=== PATIENT | male | born 1945 | race Caucasian/White ===

== ENCOUNTER 2019-03-31 11:40 | Inpatient (IN) | payer MEDICARE, OTHER ==
[~2019-03-31] VITALS: Ht 177.8 cm; Wt 80.9 kg
[2019-03-31] MEDS ORDERED: FUROSEMIDE 20 MG/2 ML VIAL IV ONE (12:30)
[2019-03-31 12:42] LABS: Basophils # (auto) 0.1 uL; Basophils % (auto) 0.5 % (0.0-2.0); Eosinophils # (auto) 0 uL; Hemoglobin 14.7 g/dL (13.5-17.5); Lymphocytes # (auto) 1.4 uL; Lymphocytes % (auto) 14.4 % (10.0-50.0); Mean Corpuscular Hemoglobin 33.3 pg (28.0-32.0); Mean Corpuscular Hgb Conc. 34.1 g/dL (32.0-36.0); Mean Corpuscular Volume 97.7 fL (80.0-100.0); Monocytes # (auto) 1.5 uL; Monocytes % (auto) 15.3 % (0.0-12.0); Neutrophils # (auto) 6.9 uL; Neutrophils % (auto) 69.8 % (37.0-80.0); Platelet Count (auto) 194 10^3/uL (140-450); Red Cell Distribution Width 14.3 % (11.8-14.3); White Blood Cell 9.9 10^3/uL (4.4-10.8)
[2019-03-31 12:58] LABS: INR 1.13 (0.9-1.15); Partial Thromboplastin Time 30.8 sec (23.64-32.05)
[2019-03-31 13:24] LABS: Albumin 3.6 g/dL (3.4-5.0); Calcium 8.8 mg/dL (8.5-10.1); Potassium 4.3 mmol/L (3.5-5.1)
[2019-03-31 13:31] LABS: BUN/Creatinine Ratio 19.5; Bilirubin, Total 0.3 mg/dL (0.2-1.0); Total Protein 7.3 g/dL (6.4-8.2)
[2019-03-31] MEDS ORDERED: HYDROcodone-ACET 5/325MG TAB PO PRN (14:45)
[2019-03-31] MEDS ORDERED: MORPHINE SULF INJ 2 MG/ML SYRINGE 1ML IV PRN ×2 (14:45)
[2019-03-31] MEDS ORDERED: NITROGLYCERIN 0.4 MG SL TAB SL PRN (14:45)
[2019-03-31] MEDS ORDERED: ACETAMINOPHEN 500 MG TAB PO PRN (14:45)
[2019-03-31] MEDS ORDERED: methylPREDNISolone SOD SUCC 125 MG/2 ML VL IV ONE (14:45)
[2019-03-31] MEDS ORDERED: ONDANSETRON HCL 4 MG/2 ML VIAL IV PRN (14:45)
[2019-03-31] MEDS: AZITHROMYCIN 500MG/ 250ML 250 ML IV SCH (15:11)
[2019-03-31 15:30] VITALS: BP 94/75
[2019-03-31 16:08] VITALS: BP 94/75
[2019-03-31] MEDS: cefTRIAXone 1GM/50ML D5W 50 ML IV SCH (16:15)
[2019-03-31] MEDS ORDERED: ATEN-60 PO (16:21)
[2019-03-31] MEDS ORDERED: ASPI325T4 PO (16:22)
[2019-03-31] MEDS ORDERED: PRAV20TA3 PO (16:23)
[2019-03-31 16:30] VITALS: BP 132/89
--- NOTE | 2019-03-31 16:30 | NUR ---
Telemetry admit from ER JOSEFINA AWAD admitted to Telemetry unit after SBAR received. Patient oriented to Navya Rodríguez, RN primary RN, unit, room, bed, and unit policies regarding patient care and visiting hours. Patient now on continuous telemetry monitoring, tele box # 39 and telemetry reading on arrival to unit is sinus rhythm. Patient placed on bedside oxygen, weighed by bedscale and encouraged to call if they need something. All questions and concerns addressed, patient verbalized understanding.
[2019-03-31 17:00] VITALS: BP 132/89
[2019-03-31] MEDS: IPRATROPIUM BROM 0.5 MG/2.5ML INH SOL NEB SCH ×2 (18:38→22:01)
[2019-03-31] MEDS: ALBUTEROL SULF 2.5 MG/0.5ML(0.5%) NEB SOLN NEB SCH ×2 (18:38→22:01)
--- NOTE | 2019-03-31 19:30 | NUR ---
Opening Shift Note Assumed care of patient, awake and alert. No S/S of distress/SOB or pain. Instructed on POC and to call for assist PRN, will continue to monitor for changes Q1hr and PRN.
--- NOTE | 2019-03-31 20:30 | NUR ---
Patient tested positive for influenza A. Patient moved to 208 and now on Droplet precautions. Paged hospitalist.
[2019-03-31 21:48] VITALS: BP 128/80
--- NOTE | 2019-03-31 22:45 | NUR ---
Received call back from hospitalist. Received new orders for Tamiflu 75 mg Daily.
[2019-04-01] VITALS (7 sets, daily range): BP systolic 102–123; BP diastolic 55–80
[2019-04-01 05:22] LABS: Basophils # (auto) 0 uL; Basophils % (auto) 0.1 % (0.0-2.0); Eosinophils # (auto) 0 uL; Hematocrit 43.2 % (41.0-53.0); Hemoglobin 14.7 g/dL (13.5-17.5); Lymphocytes # (auto) 1.2 uL; Lymphocytes % (auto) 16.2 % (10.0-50.0); Mean Corpuscular Hemoglobin 33.3 pg (28.0-32.0); Mean Corpuscular Hgb Conc. 34.2 g/dL (32.0-36.0); Mean Corpuscular Volume 97.5 fL (80.0-100.0); Monocytes # (auto) 0.7 uL; Monocytes % (auto) 10.2 % (0.0-12.0); Neutrophils # (auto) 5.2 uL; Neutrophils % (auto) 73.5 % (37.0-80.0); Platelet Count (auto) 174 10^3/uL (140-450); Red Blood Cells 4.43 10^6/uL (4.5-5.90); Red Cell Distribution Width 14.5 % (11.8-14.3); White Blood Cell 7.1 10^3/uL (4.4-10.8)
[2019-04-01 05:43] LABS: Potassium 4.1 mmol/L (3.5-5.1)
[2019-04-01 05:51] LABS: Albumin 3.3 g/dL (3.4-5.0); BUN/Creatinine Ratio 23.7; Bilirubin, Total 0.3 mg/dL (0.2-1.0); Calcium 8.8 mg/dL (8.5-10.1)
[2019-04-01] MEDS: ALBUTEROL SULF 2.5 MG/0.5ML(0.5%) NEB SOLN NEB SCH ×5 (06:00→22:48)
[2019-04-01] MEDS: IPRATROPIUM BROM 0.5 MG/2.5ML INH SOL NEB SCH ×5 (06:00→22:48)
--- NOTE | 2019-04-01 06:20 | NUR ---
Respiratory note: 0600 MED-NEB TX NON ADMINISTERED PATIENT WAS SLEEPING. NO RESPIRATORY DISTRESS NOTED.
--- NOTE | 2019-04-01 07:16 | NUR ---
Opening Shift Note Assumed care of patient, awake and alert. No S/S of distress/SOB or pain. Instructed on POC and to call for assist PRN, will continue to monitor for changes Q1hr and PRN. Bed is set in lowest locked position with side rails are up x 2 for safety and call light is within reach.
[2019-04-01] MEDS: cefTRIAXone 1GM/50ML D5W 50 ML IV SCH (08:12)
[2019-04-01] MEDS: AZITHROMYCIN 500MG/ 250ML 250 ML IV SCH (09:55)
[2019-04-01] MEDS: FAMOTIDINE 20 MG TAB PO SCH (09:55)
[2019-04-01] MEDS: OSELTAMIVIR 75 MG CAP PO SCH (09:56)
[2019-04-01] MEDS: methylPREDNISolone SOD SUCC 125 MG/2 ML VL IV SCH ×2 (15:25→21:49)
[2019-04-01] MEDS ORDERED: FUROSEMIDE 20 MG TAB PO ONE (15:30)
[2019-04-01] MEDS ORDERED: PROPRANOLOL HCL 20 MG TAB PO PRN ×2 (17:45)
[2019-04-01] MEDS ORDERED: IOHEXOL 350 MG/ML 100ML IJ ONE ×2 (18:06→19:04)
--- NOTE | 2019-04-01 19:10 | NUR ---
Endorsed care to NOC RN.
[2019-04-01] MEDS: SODIUM CHLORIDE 0.9% 1,000 ML IV SCH (19:30)
[2019-04-01] MEDS: ATORVASTATIN 20 MG TAB PO SCH (21:48)
[2019-04-01] MEDS: CARVEDILOL 3.125 MG TAB PO SCH (21:48)
[2019-04-01] MEDS: ENOXAPARIN SOD 100 MG/1 ML SYRINGE SC SCH (21:49)
--- NOTE | 2019-04-02 04:30 | NUR ---
Educated patient regarding breathing technique to help improve O2 saturation. Patient had shallow breathing and O2 saturation was at 88% and with proper breathing at 93%. Will continue to monitor.
[2019-04-02 05:36] VITALS: BP 122/81
[2019-04-02] MEDS: SODIUM CHLORIDE 0.9% 1,000 ML IV SCH ×3 (05:47→23:07)
[2019-04-02] MEDS: IPRATROPIUM BROM 0.5 MG/2.5ML INH SOL NEB SCH ×5 (06:55→22:08)
[2019-04-02] MEDS: ALBUTEROL SULF 2.5 MG/0.5ML(0.5%) NEB SOLN NEB SCH ×5 (06:55→22:08)
--- NOTE | 2019-04-02 07:30 | NUR ---
OPENING SHIFT NOTE: Received report from NOC RNRod. Assumed care of patient. Patient resting in bed, denies pain. Bed in lowest position, rails x2 up and call light within reach. Updated on plan of care. Will continue to monitor.
[2019-04-02 09:00] VITALS: BP 124/68
[2019-04-02] MEDS: cefTRIAXone 1GM/50ML D5W 50 ML IV SCH (09:21)
--- NOTE | 2019-04-02 09:25 | NUR ---
MD: Dr Kevin Dobbs at bedside. Orders received.
[2019-04-02] MEDS ORDERED: VANCOMYCIN PER PHARMACY 0 MG IV SCH (09:30)
[2019-04-02] MEDS: ENOXAPARIN SOD 100 MG/1 ML SYRINGE SC SCH ×2 (10:18→23:06)
[2019-04-02] MEDS: LEVOFLOXACIN 750MG 150 ML IV SCH (10:18)
[2019-04-02] MEDS: OSELTAMIVIR 75 MG CAP PO SCH (10:19)
[2019-04-02] MEDS: CARVEDILOL 3.125 MG TAB PO SCH ×2 (10:19→23:06)
[2019-04-02] MEDS: LORATADINE 10 MG TAB PO SCH (10:19)
[2019-04-02] MEDS: FAMOTIDINE 20 MG TAB PO SCH (10:20)
[2019-04-02] MEDS: ASPirin 81 mg TAB PO SCH (10:20)
[2019-04-02] MEDS: FUROSEMIDE 20 MG TAB PO SCH (10:20)
--- NOTE | 2019-04-02 10:45 | NUR ---
IV ACCESS: IV to left wrist noted to be leaking. IV removed with catheter intact and pressure dressing applied. Patient still with IV access to right forearm.
[2019-04-02] MEDS: VANCOMYCIN 750mg/250ml 250 ML IV SCH ×2 (12:30→23:07)
[2019-04-02 13:00] VITALS: BP 111/75
[2019-04-02 17:00] VITALS: BP 122/85
--- NOTE | 2019-04-02 18:59 | NUR ---
CLOSING SHIFT NOTE: Report given to CAT Garcia. Endorsed care of patient.
--- NOTE | 2019-04-02 19:06 | NUR ---
Opening Shift Note Assumed care of patient, awake and alert. No S/S of distress OR SOB or pain. Instructed on POC and to call for assist PRN. Call light within reach. Side rails up x2. Bed locked and in lowest position. Droplet precautions in place. Will continue to monitor.
[2019-04-02 22:00] VITALS: BP 137/91
[2019-04-02] MEDS: ACETYLCYSTEINE 10 %(100MG/ML) SOL 4ML NEB SCH (22:09)
[2019-04-02] MEDS: ATORVASTATIN 20 MG TAB PO SCH (23:06)
[2019-04-03 05:07] VITALS: BP 130/71
[2019-04-03 05:09] LABS: Basophils # (auto) 0 uL; Basophils % (auto) 0.3 % (0.0-2.0); Eosinophils # (auto) 0 uL; Eosinophils % (auto) 0.1 % (0.0-7.0); Hematocrit 40.2 % (41.0-53.0); Hemoglobin 13.7 g/dL (13.5-17.5); Lymphocytes % (auto) 18.9 % (10.0-50.0); Mean Corpuscular Hemoglobin 33.3 pg (28.0-32.0); Mean Corpuscular Hgb Conc. 34.2 g/dL (32.0-36.0); Mean Corpuscular Volume 97.2 fL (80.0-100.0); Monocytes % (auto) 9.4 % (0.0-12.0); Neutrophils # (auto) 7.5 uL; Neutrophils % (auto) 71.3 % (37.0-80.0); Platelet Count (auto) 197 10^3/uL (140-450); Red Blood Cells 4.13 10^6/uL (4.5-5.90); Red Cell Distribution Width 14.4 % (11.8-14.3); White Blood Cell 10.6 10^3/uL (4.4-10.8)
[2019-04-03 05:28] LABS: Calcium 8.2 mg/dL (8.5-10.1); Potassium 3.8 mmol/L (3.5-5.1)
[2019-04-03 05:30] LABS: BUN/Creatinine Ratio 22.7
[2019-04-03] MEDS: ACETYLCYSTEINE 10 %(100MG/ML) SOL 4ML NEB SCH ×3 (06:00→22:26)
[2019-04-03] MEDS: ALBUTEROL SULF 2.5 MG/0.5ML(0.5%) NEB SOLN NEB SCH ×5 (06:59→22:26)
[2019-04-03] MEDS: IPRATROPIUM BROM 0.5 MG/2.5ML INH SOL NEB SCH ×5 (06:59→22:26)
--- NOTE | 2019-04-03 08:10 | NUR ---
Opening Shift Note Assumed care of patient, she is A & O x4, no S/S of distress OR SOB or pain. Instructed on POC and to call for assist PRN. Call light within reach. Side rails up x2. Bed locked and in lowest position. Droplet precautions in place. Will continue to monitor.
[2019-04-03 09:00] VITALS: BP 126/77
[2019-04-03] MEDS: LORATADINE 10 MG TAB PO SCH (09:33)
[2019-04-03] MEDS: FUROSEMIDE 20 MG TAB PO SCH (09:35)
[2019-04-03] MEDS: CARVEDILOL 3.125 MG TAB PO SCH ×2 (09:35→20:35)
[2019-04-03] MEDS: ASPirin 81 mg TAB PO SCH (09:35)
[2019-04-03] MEDS: FAMOTIDINE 20 MG TAB PO SCH (09:36)
[2019-04-03] MEDS: ENOXAPARIN SOD 100 MG/1 ML SYRINGE SC SCH ×2 (09:36→20:35)
[2019-04-03] MEDS: LEVOFLOXACIN 750MG 150 ML IV SCH (09:36)
[2019-04-03] MEDS: SODIUM CHLORIDE 0.9% 1,000 ML IV SCH ×2 (09:45→21:00)
[2019-04-03] MEDS: OSELTAMIVIR 75 MG CAP PO SCH ×2 (09:51→20:35)
[2019-04-03] MEDS ORDERED: OSELTAMIVIR 75 MG CAP PO SCH (10:00)
[2019-04-03 13:00] VITALS: BP 105/84
--- NOTE | 2019-04-03 14:06 | NUR ---
NUTRITION ASSESSMENT NOTES Please refer to link notes of nutrition screen form filed under the intervention section of the plan of care for further details. Est. Needs: 1700 kcal to 2100 kcal (20-25 kcal/kgBW), 67 gms to 84 gms pro (0.8-1.0 gms/kgBW). Will continue to monitor pertinent labs and reassess nutrient need prn Thank you. Addendum: 04/03/19 at [address] Amended: Links added.
--- NOTE | 2019-04-03 16:46 | NUR ---
assessment Patient is a 73 year old male who is alert and oriented. Prior to admission patient lived home with his Heather and was independent. Patient has no need for DME. Patient uses the [facility] for PCP. Patient will return home on discharge and Heather will transport. Patient has no post discharge needs identified. I informed patient he has a right to speak to a social work coordinator regarding all care. I informed patient he has a right to participate in any and all discharge planning. Patient does not have a POA and advanced directive. I have offered patient information on POA and advanced directives. I informed the patient the advantages and benefits of having an Advanced Directive. Patient verbalized understanding and agreed to discharge plan. Addendum: 04/03/19 at 1648 by Terri ARGUETA Amended: Links added.
[2019-04-03 17:00] VITALS: BP 144/88
--- NOTE | 2019-04-03 17:25 | NUR ---
Per JACK PRIZER patient oxygen level is low Upon assessment patient oxygen is 88% on 7 L oxymizer. Patient continues to have rhonchi and a wet cough, patient talking, showing no s/s of distress at this time. This RN decreased IV fluid rate to 50 ml/hr, turned up oxymizer to 8 L/min and called RT to request breathing treatment early, normally due at 6pm. Will continue to monitor.
[2019-04-03] MEDS: ATORVASTATIN 20 MG TAB PO SCH (20:35)
[2019-04-03 21:41] VITALS: BP 121/92
[2019-04-04 04:38] VITALS: BP 123/61
[2019-04-04] MEDS: IPRATROPIUM BROM 0.5 MG/2.5ML INH SOL NEB SCH ×5 (06:16→22:34)
[2019-04-04] MEDS: ALBUTEROL SULF 2.5 MG/0.5ML(0.5%) NEB SOLN NEB SCH ×5 (06:16→22:34)
[2019-04-04] MEDS: ACETYLCYSTEINE 10 %(100MG/ML) SOL 4ML NEB SCH ×3 (06:16→22:35)
--- NOTE | 2019-04-04 08:00 | NUR ---
Opening Shift Note Assumed care of patient, he is A & O x4, no S/S of distress OR SOB or pain. Instructed on POC and to call for assist PRN. Call light within reach. Side rails up x2. Bed locked and in lowest position. Droplet precautions in place. Will continue to monitor.
[2019-04-04 09:19] VITALS: BP 118/67
--- NOTE | 2019-04-04 09:38 | NUR ---
Dr. Dobbs at bedside Informed Dr. Dobbs of patient need for high level oxygen, patient desaturates on RA. Will await orders.
[2019-04-04] MEDS: OSELTAMIVIR 75 MG CAP PO SCH ×2 (10:41→22:05)
[2019-04-04] MEDS: methylPREDNISolone SOD SUCC 125 MG/2 ML VL IV SCH ×2 (10:41→22:03)
[2019-04-04] MEDS: LORATADINE 10 MG TAB PO SCH (10:41)
[2019-04-04] MEDS: APIXABAN 2.5 MG TAB PO SCH ×2 (10:42→22:04)
[2019-04-04] MEDS: FAMOTIDINE 20 MG TAB PO SCH (10:42)
[2019-04-04] MEDS: FUROSEMIDE 20 MG TAB PO SCH (10:43)
[2019-04-04] MEDS: CARVEDILOL 3.125 MG TAB PO SCH ×3 (10:44→23:04)
[2019-04-04] MEDS: LEVOFLOXACIN 750MG 150 ML IV SCH (10:59)
[2019-04-04 13:00] VITALS: BP 114/69
[2019-04-04 16:46] VITALS: BP 113/89
[2019-04-04 22:03] VITALS: BP 105/69
[2019-04-04] MEDS: ATORVASTATIN 20 MG TAB PO SCH (22:04)
[2019-04-05 05:03] VITALS: BP 129/76
[2019-04-05] MEDS: IPRATROPIUM BROM 0.5 MG/2.5ML INH SOL NEB SCH ×5 (06:16→22:00)
[2019-04-05] MEDS: ALBUTEROL SULF 2.5 MG/0.5ML(0.5%) NEB SOLN NEB SCH ×5 (06:16→22:00)
[2019-04-05] MEDS: ACETYLCYSTEINE 10 %(100MG/ML) SOL 4ML NEB SCH ×3 (06:16→22:00)
--- NOTE | 2019-04-05 08:08 | NUR ---
Opening Shift Note Assumed care of patient, he is A & O x4, no S/S of distress OR SOB or pain. Patient sitting up at side of bed, Instructed on POC and to call for assist PRN. Call light within reach. Side rails up x2. Bed locked and in lowest position. Droplet precautions in place. Will continue to monitor.
--- NOTE | 2019-04-05 08:36 | NUR ---
O2 TITRATION O2 TITRATED TO 5L. WILL REASSESS IN 10 MINUTES
--- NOTE | 2019-04-05 08:39 | NUR ---
MD MADONNA MCKEON AT BEDSIDE. ALL QUESTIONS AND CONCERNS ADDRESSED AT THIS TIME. PER THIS RN IS TO TITRATE OXYGEN TO 5L AND REASSESS IN 10 MINUTES. Addendum: 04/05/19 at 0841 by FARIHA WANG RN RN CORRECT TIME 0836
--- NOTE | 2019-04-05 08:56 | NUR ---
PULSE OXIMETRY REASSESSED PT CURRENTLY ON 5L OXYMIZER WITH 93%SpO2. NO SOB OR S/S OF DISTRESS NOTED. WILL CONTINUE TO MONITOR
[2019-04-05 09:00] VITALS: BP 110/72
[2019-04-05] MEDS: methylPREDNISolone SOD SUCC 125 MG/2 ML VL IV SCH ×2 (09:17→21:28)
[2019-04-05] MEDS: LEVOFLOXACIN 750MG 150 ML IV SCH (09:17)
[2019-04-05] MEDS: OSELTAMIVIR 75 MG CAP PO SCH ×2 (09:17→21:29)
[2019-04-05] MEDS: APIXABAN 2.5 MG TAB PO SCH ×2 (09:18→21:29)
[2019-04-05] MEDS: LORATADINE 10 MG TAB PO SCH (09:18)
[2019-04-05] MEDS: FAMOTIDINE 20 MG TAB PO SCH (09:18)
[2019-04-05] MEDS: CARVEDILOL 3.125 MG TAB PO SCH (09:19)
[2019-04-05] MEDS: FUROSEMIDE 20 MG TAB PO SCH (09:20)
[2019-04-05 13:00] VITALS: BP 100/74
--- NOTE | 2019-04-05 15:18 | NUR ---
PULSE OXIMETRY REASSESSED PT CURRENTLY ON 5L OXYMIZER WITH 92%SpO2. NO SOB OR S/S OF DISTRESS NOTED. WILL CONTINUE TO MONITOR
[2019-04-05 17:14] VITALS: BP 116/73
[2019-04-05] MEDS: ATORVASTATIN 20 MG TAB PO SCH (21:29)
[2019-04-05 22:00] VITALS: BP 114/72
[2019-04-06] VITALS (7 sets, daily range): BP systolic 100–119; BP diastolic 67–81
[2019-04-06] MEDS: ACETYLCYSTEINE 10 %(100MG/ML) SOL 4ML NEB SCH ×3 (06:26→22:21)
[2019-04-06] MEDS: ALBUTEROL SULF 2.5 MG/0.5ML(0.5%) NEB SOLN NEB SCH ×5 (06:26→22:21)
[2019-04-06] MEDS: IPRATROPIUM BROM 0.5 MG/2.5ML INH SOL NEB SCH ×5 (06:26→22:21)
--- NOTE | 2019-04-06 08:00 | NUR ---
OPENING SHIFT NOTE ASSUMED CARE OF PATIENT AWAKE AND ALERT. NO S/S OF DISTRESS NOTED OR COMPLAINTS OF PAIN. CURRENTLY ON 5L VIA OXYMIZER SATTING AT 93%. PT UPDATED ON POC FOR THE DAY AND ALL QUESTIONS ANSWERED. PT IS EXPRESSING A DESIRE TO GO HOME. BED IS IN LOWEST, LOCKED POSITION WITH SIDE RAILS UP X2 AND CALL LIGHT WITHIN REACH. WILL CONTINUE TO MONITOR Q1H AND PRN.
[2019-04-06] MEDS: LEVOFLOXACIN 750MG 150 ML IV SCH (10:02)
[2019-04-06] MEDS: OSELTAMIVIR 75 MG CAP PO SCH ×2 (10:03→21:53)
[2019-04-06] MEDS: LORATADINE 10 MG TAB PO SCH (10:03)
[2019-04-06] MEDS: methylPREDNISolone SOD SUCC 125 MG/2 ML VL IV SCH ×2 (10:03→21:51)
[2019-04-06] MEDS: FUROSEMIDE 20 MG TAB PO SCH (10:04)
[2019-04-06] MEDS: APIXABAN 2.5 MG TAB PO SCH ×2 (10:04→21:53)
[2019-04-06] MEDS: FAMOTIDINE 20 MG TAB PO SCH (10:04)
[2019-04-06] MEDS: CARVEDILOL 3.125 MG TAB PO SCH ×2 (10:04→21:52)
--- NOTE | 2019-04-06 18:35 | NUR ---
Respiratory note: INCREASED PT TO 8L OXYMIZER AT THIS TIME
[2019-04-06] MEDS: ATORVASTATIN 20 MG TAB PO SCH (21:53)
--- NOTE | 2019-04-06 22:31 | NUR ---
Respiratory note: POST MED NEB, PLACED PT ON 10L OXYMIZER
[2019-04-07 05:00] VITALS: BP 101/72
--- NOTE | 2019-04-07 06:30 | NUR ---
PATIENT TITRATED BACK DOWN TO 5L OXYMIZER. PATIENT SATURATIONS AT 94% AT THIS TIME. PATIENT ASYMPTOMATIC. PATIENT STATES " I FEEL REALLY GOOD THIS MORNING". WILL CONTINUE TO MONITOR.
[2019-04-07] MEDS: ALBUTEROL SULF 2.5 MG/0.5ML(0.5%) NEB SOLN NEB SCH ×4 (06:46→18:00)
[2019-04-07] MEDS: ACETYLCYSTEINE 10 %(100MG/ML) SOL 4ML NEB SCH ×2 (06:46→13:59)
[2019-04-07] MEDS: IPRATROPIUM BROM 0.5 MG/2.5ML INH SOL NEB SCH ×4 (06:46→18:00)
--- NOTE | 2019-04-07 07:01 | NUR ---
CLOSING NOTE REPORT GIVEN TO DAYSHIFT RN. PATIENT RESTING COMFORTABLY IN BED.
--- NOTE | 2019-04-07 08:00 | NUR ---
OPENING SHIFT NOTE ASSUMED CARE OF PATIENT AWAKE AND ALERT. NO S.S OF DISTRESS OR COMPLAINTS OF PAIN. PT IS ON 5L VIA OXYMIZER SATURATING BETWEEN 90-94%. ENCOURAGED PATIENT TO TAKE FREQUENT DEEP BREATHS, COUGH, AND USE IS. PT VERBALIZED UNDERSTANDING AND DEMONSTRATED CORRECT USE OF IS. PT UPDATED ON POC FOR THE DAY AND ALL QUESTIONS ANSWERED. BED IS IN LOWEST, LOCKED POSITION WITH SIDE RAILS UP X2 AND CALL LIGHT WITHIN REACH. WILL CONTINUE TO MONITOR Q1H AND PRN.
[2019-04-07 09:00] VITALS: BP 107/73
[2019-04-07] MEDS: CARVEDILOL 3.125 MG TAB PO SCH (09:48)
[2019-04-07] MEDS: LEVOFLOXACIN 750MG 150 ML IV SCH (09:48)
[2019-04-07] MEDS: LORATADINE 10 MG TAB PO SCH (09:48)
[2019-04-07] MEDS: methylPREDNISolone SOD SUCC 125 MG/2 ML VL IV SCH (09:48)
[2019-04-07] MEDS: FUROSEMIDE 20 MG TAB PO SCH (09:49)
[2019-04-07] MEDS: APIXABAN 2.5 MG TAB PO SCH (09:49)
[2019-04-07] MEDS: FAMOTIDINE 20 MG TAB PO SCH (09:49)
[2019-04-07] MEDS: OSELTAMIVIR 75 MG CAP PO SCH (09:49)
--- NOTE | 2019-04-07 10:00 | NUR ---
AT BEDSIDE DR MCKEON AT BEDSIDE UPDATING FAMILY ON POC FOR THE DAY INCLUDING DISCHARGE AFTER DELIVERY OF HOME O2.
[2019-04-07 12:53] VITALS: BP 117/78
--- NOTE | 2019-04-07 16:06 | NUR ---
SS consult for home oxygen upon discharge. b Submitted clinical information to [facility] for home oxygen. Per Jonna at [facility], pt amanda has [employer] and no sceondary coverage. Additionally , [facility] does not do hernandez payments for oxygen at this time. Informed Jonna that pt [facility]. Per Jonna the [facility] is [facility] with [facility]. Contacted [facility] and spoke with Dee, who stated the order for oxygen would have to come from the [facility]. Dee did inform me that they do take hernandez patients and oxygen for one month is $120. Pt informed that he could pay for the month and upon following up with his [facility] provider he could obtain orders and have them sent to [facility] for medical coverage of home oxygen. Pt verbalized understanding and agreeance with discharge plan. portable tank to be delivered to the bedside.
[2019-04-07 17:00] VITALS: BP 121/77
--- NOTE | 2019-04-07 18:16 | NUR ---
Respiratory note: PT REFUSING SCHED MED NEB TX AT THIS TIME. PT IS CURRENTLY ON 6 L/M OXYMIZER: HR 89, RR 18, SPO2 90%. PT SHOWS NO S/S OF SOB OR DISTRESS. FAMILY AT BEDSIDE. WILL CONTINUE TO MONITOR.
--- NOTE | 2019-04-07 21:00 | NUR ---
DISCHARGE Discharge instructions given as ordered by dayshift CAT Mota and reinforced by this RN. Patient encouraged to follow up with PMD as instructed. All questions and concerns addressed. Patient verbalized understanding. IV removed with catheter intact, pressure dressing applied. Telemetry unit returned to ICU by day shift CAT Mota. Patient given prescriptions and left with home oxygen tank. Patient taken to vehicle via wheelchair with all personal belongings, accompanied by staff and family member. No distress noted at time of departure.
== END 2019-04-07 21:00 | disposition home health service (06) | DRG 291 ==
LOC: EDBD 11:40 → ER 11:40 → TELE 11:41 → TELE-CENTR 16:10 → CENTRAL 04-07 18:53
PROVIDERS: ADMIT Nurse Practitioner Acute Care; ATTEND Family Medicine
DX: I13.0 Hypertensive heart and chronic kidney disease with heart failure and stage 1 through stage 4 chronic kidney disease, or unspecified chronic kidney disease (principal); I50.33 Acute on chronic diastolic (congestive) heart failure; J96.01 Acute respiratory failure with hypoxia; J10.00 Influenza due to other identified influenza virus with unspecified type of pneumonia; J98.11 Atelectasis; N18.3 Chronic kidney disease, stage 3 (moderate); J20.9 Acute bronchitis, unspecified; E78.00 Pure hypercholesterolemia, unspecified; I71.4 Abdominal aortic aneurysm, without rupture; I25.10 Atherosclerotic heart disease of native coronary artery without angina pectoris; E78.5 Hyperlipidemia, unspecified; J43.9 Emphysema, unspecified; F17.200 Nicotine dependence, unspecified, uncomplicated; Z99.81 Dependence on supplemental oxygen; Z95.1 Presence of aortocoronary bypass graft; Z79.82 Long term (current) use of aspirin; Z79.899 Other long term (current) drug therapy; Z85.51 Personal history of malignant neoplasm of bladder; Z90.79 Acquired absence of other genital organ(s); Z82.49 Family history of ischemic heart disease and other diseases of the circulatory system
CPT/HCPCS: 36415; 36600; 71045; 71046; 71275; 80048; 80053; 80061; 82805; 83735; 83880; 84484; 85025; 85379; 85610; 85730; 87070; 87205; 87804; 93005; 93306; 93970; 94640; 96365; 96375; 97163; G0378; J0696; J1956

== ENCOUNTER 2023-10-11 15:25 | Inpatient (IN) | payer MEDICARE, OTHER ==
[~2023-10-11] VITALS: Ht 177.8 cm; Wt 70.2 kg
[~2023-10-11 15:25] MED LIST: ASPI325T6 PO; ATEN-60 PO; PRAV20TA3 PO
[2023-10-11] MEDS: IPRATROPIUM BROM 0.5 MG/2.5ML INH SOL NEB ONE ×2 (16:19→17:52)
[2023-10-11] MEDS: ALBUTEROL SULF 2.5 MG/0.5ML(0.5%) NEB SOLN NEB ONE ×2 (16:19→17:51)
[2023-10-11 16:39] VITALS: PULSE 71; RESP 22; O2SAT 92
[2023-10-11] MEDS: DexAMETHasone SOD PHOS 10MG/1ML VIAL INJ IV ONE (16:39)
[2023-10-11 16:51] LABS: Basophils # (auto) 0 10 ^3/uL (0-0.2); Basophils % (auto) 0.4 % (0.0-2.0); Eosinophils # (auto) 0.1 10 ^3/uL (0-0.8); Eosinophils % (auto) 1.3 % (0.0-7.0); Lymphocytes # (auto) 1.4 10 ^3/uL (0.4-5.4); Lymphocytes % (auto) 23.5 % (10.0-50.0); Mean Corpuscular Hemoglobin 31.6 pg (28.0-32.0); Mean Corpuscular Hgb Conc. 33.3 g/dL (32.0-36.0); Mean Corpuscular Volume 94.8 fL (80.0-100.0); Monocytes % (auto) 16.8 % (0.0-12.0); Neutrophils # (auto) 3.6 10 ^3/uL (1.6-8.6); Nucleated Red Blood Cells % 0.1 %; Platelet Count (auto) 214 10^3/uL (140-450); Red Blood Cells 4.43 10^6/uL (4.5-5.90); Red Cell Distribution Width 15.5 % (11.8-14.3); White Blood Cell 6.1 10^3/uL (4.4-10.8)
[2023-10-11 17:10] LABS: Chloride 104 mmol/L (98-107); Potassium 4.4 mmol/L (3.5-5.1); Sodium 139 mmol/L (136-145)
[2023-10-11 17:11] LABS: Anion Gap 1 (5-15); Calcium 9.5 mg/dL (8.7-10.4); Carbon Dioxide 34 mmol/L (20-30)
[2023-10-11 17:16] LABS: BUN/Creatinine Ratio 12.8 (10.0-20.0); Blood Urea Nitrogen 14 mg/dL (9-23); Glucose 127 mg/dL (74-106)
[2023-10-11 19:13] VITALS: PULSE 76; RESP 29; O2SAT 92; O2SAT 96
[2023-10-11] MEDS ORDERED: hydrALAZINE HCL 20 MG/ML VL IV PRN (21:30)
[2023-10-11] MEDS ORDERED: ACETAMINOPHEN 325 MG TAB PO PRN (21:30)
[2023-10-11] MEDS ORDERED: HYDROcodone-ACET 5/325MG TAB PO PRN (21:30)
[2023-10-11] MEDS ORDERED: ONDANSETRON HCL 4 MG/2 ML VIAL IV PRN (21:30)
[2023-10-11] MEDS ORDERED: DOCUSATE SOD 100 MG CAP PO PRN (21:30)
[2023-10-11] MEDS: SODIUM CHLORIDE 0.9% 1,000 ML IV SCH (21:46)
[2023-10-11 21:47] VITALS: O2SAT 90
[2023-10-11 21:48] VITALS: BP 124/74; PULSE 74; TEMP 98.2; O2SAT 90
[2023-10-11] MEDS: ATORVASTATIN 20 MG TAB PO SCH (21:48)
[2023-10-11] MEDS ORDERED: NITROGLYCERIN 0.4 MG SL TAB SL PRN (23:45)
[2023-10-11] MEDS ORDERED: MORPHINE SULFATE INJ 2 MG/ml SYRG IV PRN (23:45)
[2023-10-12] VITALS (9 sets, daily range): BP systolic 118–126; BP diastolic 72–76; PULSE 61–89; RESP 16–18; TEMP 97.6–97.8; O2SAT 92–100
[2023-10-12] MEDS: IPRATROPIUM BROM 0.5 MG/2.5ML INH SOL NEB PRN (02:16)
[2023-10-12] MEDS: ALBUTEROL SULF 2.5 MG/0.5ML(0.5%) NEB SOLN NEB PRN (02:16)
[2023-10-12 04:37] LABS: Basophils # (auto) 0 10 ^3/uL (0-0.2); Basophils % (auto) 0.2 % (0.0-2.0); Eosinophils # (auto) 0 10 ^3/uL (0-0.8); Hematocrit 40.6 % (41.0-53.0); Hemoglobin 13.8 g/dL (13.5-17.5); Lymphocytes # (auto) 0.8 10 ^3/uL (0.4-5.4); Lymphocytes % (auto) 15.2 % (10.0-50.0); Mean Corpuscular Hgb Conc. 33.9 g/dL (32.0-36.0); Mean Corpuscular Volume 94.3 fL (80.0-100.0); Monocytes # (auto) 0.3 10 ^3/uL (0-1.3); Monocytes % (auto) 5.7 % (0.0-12.0); Neutrophils # (auto) 4.1 10 ^3/uL (1.6-8.6); Neutrophils % (auto) 78.9 % (37.0-80.0); Platelet Count (auto) 192 10^3/uL (140-450); Red Blood Cells 4.31 10^6/uL (4.5-5.90); Red Cell Distribution Width 14.8 % (11.8-14.3); White Blood Cell 5.2 10^3/uL (4.4-10.8)
[2023-10-12 04:54] LABS: Alanine Aminotransferase 17 U/L (7-40); Albumin 4.2 g/dL (3.2-4.8); Alkaline Phosphatase 138 U/L (46-116); Anion Gap 5 (5-15); Aspartate Aminotransferase 15 U/L (13-40); BUN/Creatinine Ratio 13.3 (10.0-20.0); Bilirubin, Total 0.4 mg/dL (0.2-1.0); Blood Urea Nitrogen 12 mg/dL (9-23); Calcium 8.9 mg/dL (8.7-10.4); Carbon Dioxide 27 mmol/L (20-30); Chloride 106 mmol/L (98-107); Glucose 165 mg/dL (74-106); Potassium 4.4 mmol/L (3.5-5.1); Sodium 138 mmol/L (136-145); Total Protein 6.2 g/dL (5.7-8.2)
[2023-10-12] MEDS: DexAMETHasone SOD PHOS 10MG/1ML VIAL INJ IV SCH (11:23)
[2023-10-12] MEDS: ASPirin 81 mg TAB PO SCH (11:23)
== END 2023-10-12 13:15 | disposition left against medical advice (07) | DRG 189 ==
LOC: ER 15:25 → TELE 23:39 → TELE-CENTR 10-12 05:48
PROVIDERS: ADMIT Nurse Practitioner Family; ATTEND Family Medicine
DX: J96.01 Acute respiratory failure with hypoxia (principal); J44.1 Chronic obstructive pulmonary disease with (acute) exacerbation; I50.32 Chronic diastolic (congestive) heart failure; I25.10 Atherosclerotic heart disease of native coronary artery without angina pectoris; Z53.29 Procedure and treatment not carried out because of patient's decision for other reasons; I11.0 Hypertensive heart disease with heart failure; E78.00 Pure hypercholesterolemia, unspecified; Z95.1 Presence of aortocoronary bypass graft; Z79.899 Other long term (current) drug therapy
CPT/HCPCS: 36415; 71046; 80048; 80053; 83880; 84484; 85025; 93005; 94640; G0378; J1100

== ENCOUNTER 2023-10-31 08:51 | Emergency (ER) | payer SELFPAY ==
[~2023-10-31] VITALS: Ht 177.8 cm; Wt 67.2 kg
[2023-10-31 11:08] VITALS: BP 106/66; PULSE 84; RESP 16; TEMP 97.5; O2SAT 95
== END 2023-10-31 11:30 | disposition home or self-care (01) ==
LOC: ER 08:51
DX: S70.02XA Contusion of left hip, initial encounter (principal); J44.9 Chronic obstructive pulmonary disease, unspecified; I50.9 Heart failure, unspecified; I25.10 Atherosclerotic heart disease of native coronary artery without angina pectoris; Z98.890 Other specified postprocedural states; Z79.899 Other long term (current) drug therapy; W18.39XA Other fall on same level, initial encounter; Y93.89 Activity, other specified; Y92.89 Other specified places as the place of occurrence of the external cause; Y99.8 Other external cause status
CPT/HCPCS: 73502

== ENCOUNTER 2024-04-24 12:35 | Inpatient (IN) | payer OTHER ==
[~2024-04-24] VITALS: Ht 177.8 cm; Wt 69.4 kg
--- NOTE | 2024-04-24 12:52 | ECG ---
[facility] Test Date: 2024-04-24 Test Time: 12:44:20 Pat Name: JOSEFINA AWAD Department: ER Room: 0286 Gender: M [employer]: GP : 1945 Requested By: ALBA NICOLE Order Number: [id number] Reading MD: Gilberto Seay Measurements Intervals [place] Rate: 112 P: 126 [place]: 202 QRS: 94 QRSD: 88 T: -63 QT: 270 QTc: 369 Interpretive Statements Sinus tachycardia Ventricular premature complex Consider left atrial enlargement Right axis deviation Consider left ventricular hypertrophy Nonspecific T abnormalities, diffuse leads Baseline wander in lead(s) V1,V2 Electronically Signed On 04-26-2024 17:47:11 PST by Gilberto Seay Please click the below link to view image of tracing.
--- NOTE | 2024-04-24 13:05 | ED.PDOC ---
SOB-HPI HPI Comments 78 y/o M, with PMHX of COPD, CAD and CHF presents to the ED for CC of shortness of breath. Patient states, that he has been experiencing episodes of shortness of breath xdays. Patient relays, that shortness of breath worsens with light exertion feeling as if he cannot get enough air. Patient comments on, SPO2 being in the 80s at home; patient stating at 97% in triage. Patient denies chest pain, fever, chills, body-aches, or N/V/D. No other associated symptom's, modifiers, recent injuries or sick contacts at this time. Time Seen by MD: 12:50 Primary Care Provider: ANKITA Reviewed notes: Nurses Notes, Medications, Allergies Information Source: Patient Mode of Arrival: Ambulatory Severity: Moderate Timing: Days Duration: Since onset Context: At Rest, With Light Exertion PE Risk Factors: None History of: COPD, CHF Prehospital treatment: None Modifying Factors: Nothing Associated Signs and Symptoms: None Past Medical History PAST MEDICAL HISTORY: CAD, CHF, COPD Surgical History: CABG Family History Family History: Reviewed,noncontributory to illness Social History Smoker: Non-Smoker Alcohol: Denies ETOH Use Drugs: Denies Drug Use Lives In: Home Constitutional: denies: chills, diaphoresis, fatigue, fever, malaise, sweats, weakness, others EENTM: denies: blurred vision, double vision, ear bleeding, ear discharge, ear drainage, ear pain, ear ringing, eye pain, eye redness, hearing loss, mouth pain, mouth swelling, nasal discharge, nose bleeding, nose congestion, nose pain, photophobia, tearing, throat pain, throat swelling, voice changes, others Respiratory: reports: shortness of breath; denies: cough, hemoptysis, orthopnea, SOB at rest, SOB with excertion, stridor, wheezing, others Cardiovascular: denies: chest pain, dizzy spells, diaphoresis, Dyspnea on exertion, edema, irregular heart beat, left arm pain, lightheadedness, palpitations, PND, syncope, others Gastrointestinal: denies: abdomen distended, abdominal pain, blood streaked bowels, constipated, diarrhea, dysphagia, difficulty swallowing, hematemesis, melena, nausea, poor appetite, poor fluid intake, rectal bleeding, rectal pain, vomiting, others Genitourinary: denies: burning, dysuria, flank pain, frequency, hematuria, incontinence, penile discharge, penile sore, pain, testicle pain, testicle swelling, urgency, others Neurological: denies: dizziness, fainting, headache, left sided numbness, left sided weakness, numbness, paresthesia, pre-existing deficit, right sided numbness, right sided weakness, seizure, speech problems, tingling, tremors, weakness, others Musculoskeletal: denies: back pain, gout, joint pain, joint swelling, muscle pain, muscle stiffness, neck pain, others Integumetry: denies: bruises, change in color, change in hair/nails, dryness, laceration, lesions, lumps, rash, wounds, others Allergic/Immunocompromised: denies: Difficulty Healing, Frequent Infections, Hives, Itching, others Hematologic/Lymphatic: denies: anemia, blood clots, easy bleeding, easy bruising, swollen glands, others Endocrine: denies: excessive hunger, excessive sweating, excessive thirst, excessive urination, flushing, intolerance to cold, intolerance to heat, unexplained weight gain, unexplained weight loss, others Psychiatric: denies: anxiety, bipolar disorder, depression, hopeless, panic disorder, schizophrenia, sleepless, suicidal, others All Other Systems: Reviewed and Negative Physical Exam General Appearance: Moderate Distress HEENT: Normal ENT Inspection, Pharynx Normal, TMs Normal Neck: Full Range of Motion, Non-Tender, Normal, Normal Inspection Respiratory: Other (Coarse breath sounds) Cardiovascular: No Edema, No JVD, No Murmur, No Gallop, Normal Peripheral Pulses, Regular Rate/Rhythm Breast Exam: Deferred Gastrointestinal: No Organomegaly, Non Tender, No Pulsatile Mass, Normal Bowel Sounds, Soft Genitalia: Deferred Pelvic: Deferred Rectal: Deferred Extremities: No calf tenderness, Normal capillary refill, Normal inspection, Normal range of motion, Non-tender, No pedal edema Musculoskeletal : Apperance: Normal Neurologic: Alert, pinion staker II-XII nml as Tested, No Motor Deficits, Normal Affect, Normal Mood, No Sensory Deficits Cerebellar Function: Normal Reflexes: Normal Skin: Dry, Normal Color, Warm Peripheral Pulses: 3+ Radial (R), 3+ Radial (L) Lymphatic: No Adenopathy Was a procedure done? Was a procedure done?: No Differential Dx Differential Diagnosis: Anxiety, Asthma, Bronchitis, CHF, COPD, Pneumonia, Sinusitis, Pharyngitis, URI X-Ray, Labs, Meds, VS Vital Signs Date Time Temp Pulse Resp B/P (MAP) Pulse Ox O2 Delivery O2 Flow Rate FiO2 04/24/24 15:35 107 16 98/62 (74) 93 04/24/24 14:01 16 97 Room Air* 0 21 04/24/24 13:32 106 17 94 Room Air* 0 21 04/24/24 13:32 98.2 106 17 102/63 (76) 94 98.2 04/24/24 12:49 98.4 98 18 92/57 (69) 96 04/24/24 12:49 18 96 Room Air* 0 21 04/24/24 12:44 112 Lab Test 04/24/24 13:10 Range/Units White Blood Count 5.9 4.4-10.8 10^3/uL Red Blood Count 4.07 L 4.5-5.90 10^6/uL Hemoglobin 12.8 L 13.5-17.5 g/dL Hematocrit 37.9 L 41.0-53.0 % Mean Corpuscular Volume 93.1 80.0-100.0 fL Mean Corpuscular Hemoglobin 31.4 28.0-32.0 pg Mean Corpuscular Hemoglobin Concent 33.7 32.0-36.0 g/dL Red Cell Distribution Width 14.2 11.8-14.3 % Platelet Count 142 140-450 10^3/uL Mean Platelet Volume 8.2 6.9-10.8 fL Neutrophils (%) (Auto) 91.3 H 37.0-80.0 % Lymphocytes (%) (Auto) 6.8 L 10.0-50.0 % Monocytes (%) (Auto) 0.3 0.0-12.0 % Eosinophils (%) (Auto) 1.2 0.0-7.0 % Basophils (%) (Auto) 0.4 0.0-2.0 % Neutrophils # (Auto) 5.4 1.6-8.6 10 ^3/uL Lymphocytes # (Auto) 0.4 0.4-5.4 10 ^3/uL Monocytes # (Auto) 0 0-1.3 10 ^3/uL Eosinophils # (Auto) 0.1 0-0.8 10 ^3/uL Basophils # (Auto) 0 0-0.2 10 ^3/uL Nucleated Red Blood Cells 0.0 % Sodium Level 136 136-145 mmol/L Potassium Level 4.2 3.5-5.1 mmol/L Chloride Level 97 L 98-107 mmol/L Carbon Dioxide Level 30 20-31 mmol/L Anion Gap 9 5-15 Blood Urea Nitrogen 28 H 9-23 mg/dL Creatinine 1.23 0.700-1.30 mg/dL Glomerular Filtration Rate Calc 60 >90 mL/min BUN/Creatinine Ratio 22.8 H 10.0-20.0 Serum Glucose 136 H 74-106 mg/dL Calcium Level 9.4 8.7-10.4 mg/dL Troponin I High Sensitivity 9 </=54 ng/L Current Medications Medications (Trade) Dose Ordered Sig/Keeley Route Start Time Stop Time Status Last Admin Methylprednisolone Sodium Succinate (Solu Medrol) 125 mg ONCE ONCE IV 04/24/24 13:15 04/24/24 13:16 DC 04/24/24 13:29 Albuterol (Ventolin Medneb) 5 mg ONCE ONCE NEB 04/24/24 13:15 04/24/24 13:16 DC 04/24/24 14:01 Ipratropium [place] (Atrovent Medneb) 0.5 mg ONCE ONCE NEB 04/24/24 13:15 04/24/24 13:16 DC 04/24/24 14:01 [place] [id number] Ph: [phone] DIAGNOSTIC IMAGING Diagnostic Imaging Report : [id number] Signed PATIENT: JOSEFINA AWAD ACCT: [id number] UNIT: [id number] : 1945 LOC: ER ROOM / BED: / AGE / SEX: 78 / M ADM STATUS: REG ER SERVICE 1252 ORDERING PHYSICIAN: ALBA NICOLE MD PROCEDURE(s): CXRP - CHEST PORTABLE REASON: sob ORDER NUMBER(s): [id number], ACCESSION NUMBER(s): [id number] CHEST RADIOGRAPH Indication: sob Technique: Single frontal view of the chest was obtained COMPARISON: CHEST PORTABLE on DOS: 04/01/19, CHEST PORTABLE on DOS: 03/31/19 FINDINGS: Lines and Tubes: Median sternotomy Lungs: Clear Pleura: No effusion. No pneumothorax. Cardiomediastinal contours: Unremarkable Bones: Unremarkable IMPRESSION: No acute disease. ATED BY: HEMANT WILCOX MD DICTATED DATE/TIME: 04/24/24 1312 SIGNED BY: HEMANT WILCOX MD SIGNED DATE/TIME: 04/24/24 1312 CC: Patient alert. Complaining of shortness a breath. Coarse breath sounds. Saturation above 95%. He has stopped smoking many years ago. Head coronary artery bypass graft. Pneumonitis. Was given steroid. Was given breathing treatment. Explained to the patient. Continue cardiac monitoring. EKG reviewed does show chronic changes. Time of 1ST Reevaluation: 17:48 Reevaluation 1ST: Unchanged Patient Education/Counseling: Diagnosis, Treatment Family Education/Counseling: No Family Present Departure 1 Departure Time of Disposition: 13:13 Impression: Primary Impression: COPD with acute exacerbation Additional Impression: Pneumonitis Disposition: ADMITTED INPATIENT Admit to: Med Surg Condition: Guarded Critical Care Note Critical Care Time?: No Stability Stability form required: No Heart Score Heart Score: Heart Score Response (Comments) Value History Slightly Suspicious 0 EKG Normal 0 Age >65 2 Risk Factors >3 or Hx ASHD 2 Troponin Normal limit 0 Total 4 I personally scribed for ALBA NICOLE MD ([email or web address]) on 04/24/24 at 13:05. Electronically submitted by Roshni Lopez ([email or web address]). I personally scribed for ALBA NICOLE MD ([email or web address]) on 04/24/24 at 14:03. Electronically submitted by Roshni Lopez ([email or web address]). ALBA NICOLE MD Apr 24, 2024 13:05
--- NOTE | 2024-04-24 13:17 | DVH ---
CHEST RADIOGRAPH Indication: sob Technique: Single frontal view of the chest was obtained COMPARISON: CHEST PORTABLE on DOS: 04/01/19, CHEST PORTABLE on DOS: 03/31/19 FINDINGS: Lines and Tubes: Median sternotomy Lungs: Clear Pleura: No effusion. No pneumothorax. Cardiomediastinal contours: Unremarkable Bones: Unremarkable IMPRESSION: No acute disease.
[2024-04-24] MEDS: methylPREDNISolone SOD SUCC 125 MG/2 ML VL IV ONE (13:29)
[2024-04-24 13:32] VITALS: PULSE 106; RESP 17; O2SAT 94
[2024-04-24 13:32] LABS: Basophils # (auto) 0 10 ^3/uL (0-0.2); Basophils % (auto) 0.4 % (0.0-2.0); Eosinophils # (auto) 0.1 10 ^3/uL (0-0.8); Eosinophils % (auto) 1.2 % (0.0-7.0); Hematocrit 37.9 % (41.0-53.0); Hemoglobin 12.8 g/dL (13.5-17.5); Lymphocytes # (auto) 0.4 10 ^3/uL (0.4-5.4); Lymphocytes % (auto) 6.8 % (10.0-50.0); Mean Corpuscular Hemoglobin 31.4 pg (28.0-32.0); Mean Corpuscular Hgb Conc. 33.7 g/dL (32.0-36.0); Mean Corpuscular Volume 93.1 fL (80.0-100.0); Monocytes # (auto) 0 10 ^3/uL (0-1.3); Monocytes % (auto) 0.3 % (0.0-12.0); Neutrophils # (auto) 5.4 10 ^3/uL (1.6-8.6); Neutrophils % (auto) 91.3 % (37.0-80.0); Platelet Count (auto) 142 10^3/uL (140-450); Red Blood Cells 4.07 10^6/uL (4.5-5.90); Red Cell Distribution Width 14.2 % (11.8-14.3); White Blood Cell 5.9 10^3/uL (4.4-10.8)
[2024-04-24 13:47] LABS: Potassium 4.2 mmol/L (3.5-5.1)
[2024-04-24 13:48] LABS: Anion Gap 9 (5-15); Carbon Dioxide 30 mmol/L (20-31)
[2024-04-24 13:49] LABS: Calcium 9.4 mg/dL (8.7-10.4)
[2024-04-24 13:53] LABS: BUN/Creatinine Ratio 22.8 (10.0-20.0)
[2024-04-24 13:54] LABS: Blood Urea Nitrogen 28 mg/dL (9-23); Chloride 97 mmol/L (98-107); Glucose 136 mg/dL (74-106); Sodium 136 mmol/L (136-145)
[2024-04-24] MEDS: ALBUTEROL SULF 2.5 MG/0.5ML(0.5%) NEB SOLN NEB ONE (14:01)
[2024-04-24] MEDS: IPRATROPIUM BROM 0.5 MG/2.5ML INH SOL NEB ONE (14:01)
[2024-04-24] MEDS ORDERED: NITROGLYCERIN 0.4 MG SL TAB SL PRN (21:45)
[2024-04-24] MEDS ORDERED: ACETAMINOPHEN 325 MG TAB PO PRN (21:45)
[2024-04-24] MEDS ORDERED: MORPHINE SULFATE INJ 2 MG/ml SYRG IV PRN (21:45)
[2024-04-24] MEDS: SODIUM CHLOR 0.9% PF (SALINE LOCK) 10ML VIAL/SYR IV SCH (22:04)
[2024-04-24 22:24] LABS: Albumin 4.2 g/dL (3.2-4.8); Bilirubin, Direct 0.2 mg/dL (<0.3); Bilirubin, Total 0.5 mg/dL (0.2-1.0); Blood Alcohol 3.5 mg/dL (<10); Magnesium 1.7 mg/dL (1.6-2.6); Total Protein 6.3 g/dL (5.7-8.2)
--- NOTE | 2024-04-24 22:34 | DVHHPRES ---
History of Present Illness Resident Creating Document: BRUNILDA BROWN RESIDENT History of Present Illness JOSEFINA AWAD is a 78-year-old hard of hearing male with a PMH of CAD, CHF, COPD, diabetes presented to the ED with the chief complaints shortness of breath and cough. Patient reported he has been having on going shortness of breath for 3 months and yesterday started having cough and pulse oximetry showed saturation to 84 which prompted him to visit ED. on my assessment patient denies fever, nausea, vomiting, chest pain, abdominal pain, diaphoresis, palpitations and other acute associated symptoms. PMH: CAD, CHF, COPD, type 2 DM, PSH: CABG Family history: Reviewed, noncontributory Social history: Lives with family. Quit smoking on entecavir of yeast smoke less than 1 pack per day for 50 years, denies alcohol and other drug abuse Allergies: No known allergies Review of Systems Review of Systems Patient seen and examined at the bedside. Constitutional: No: Fever, Chills, Sweats, Weakness, Malaise, Other Eyes: No: Pain, Vision change, Conjunctivae inflammation, Eyelid inflammation, Other, Redness ENT: Other (Hearing loss) Respiratory: Shortness of breath Cardiovascular: No: Chest Pain, Palpitations, Orthopnea, Paroxysmal Noc. Dyspnea, Edema, Lt Headedness, Other Gastrointestinal: No: Nausea, Vomiting, Abdominal Pain, Diarrhea, Constipation, Melena, Hematochezia, Other Genitourinary: No Dysuria, No Frequency, No Incontinence, No Hematuria, No Retention, No Other Musculoskeletal: No: other, neck pain, shoulder pain, arm pain, back pain, hand pain, leg pain, foot pain Skin: No: Rash, Lesions, Jaundice, Bruising, Other Neurological: No: Weakness, Numbness, Incoordination, Change in speech, Confusion, Seizures, Other Allergies: Coded Allergies: NO KNOWN ALLERGIES (Unverified , 03/31/19) Medications Current Medications Medications Dose Ordered Sig/Keeley Route Start Time Stop Time Status Last Admin Dose Admin Sodium Chloride 10 ml Q8HR IV 04/24/24 22:00 04/24/24 22:04 10 ML Enoxaparin Sodium 40 mg DAILY SC 04/25/24 10:00 Acetaminophen 650 mg Q6HP PRN PO 04/24/24 21:45 Nitroglycerin 0.4 mg Q5MINP PRN SL 04/24/24 21:45 Morphine Sulfate 2 mg Q30M PRN IV 04/24/24 21:45 Methylprednisolone Sodium Succinate 40 mg DAILY IV 04/25/24 10:00 UNV Levalbuterol HCl 0.625 mg Q6HR NEB 04/25/24 00:00 UNV Ipratropium [place] 0.5 mg Q6HR NEB 04/25/24 00:00 UNV Atenolol 25 mg DAILY PO 04/25/24 10:00 UNV Pravastatin Sodium 20 mg DAILY PO 04/25/24 10:00 UNV Exam Vital Signs Vital Signs Date Time Temp Pulse Resp B/P (MAP) Pulse Ox O2 Delivery O2 Flow Rate FiO2 04/24/24 19:47 Room Air* 0 21 04/24/24 18:11 100 18 102/70 (81) 95 04/24/24 13:32 98.2 98.2 Exam General Appearance: Alert, Oriented X3, Cooperative, Not in acute distress HEENT: Atraumatic, Mucous membranes moist/pink, hard of hearing using hearing aids Respiratory: Clear to auscultation, Normal air movement Cardiovascular: Regular rate, Normal S1, Normal S2 Abdominal: Active bowel sounds, Soft, no distention, no tenderness Extremities: No edema, Normal pulses, No tenderness/swelling Skin: No Significant rash, except past surgical scars Neuro: Normal speech, sensorimotor deficits none Psych/Mental Status: Mental status NL, Mood NL Nurse was there as sharperone during examination Labs/Xrays Labs Test 04/24/24 22:15 04/24/24 21:56 04/24/24 13:10 Range/Units White Blood Count 5.9 4.4-10.8 10^3/uL Red Blood Count 4.07 L 4.5-5.90 10^6/uL Hemoglobin 12.8 L 13.5-17.5 g/dL Hematocrit 37.9 L 41.0-53.0 % Mean Corpuscular Volume 93.1 80.0-100.0 fL Mean Corpuscular Hemoglobin 31.4 28.0-32.0 pg Mean Corpuscular Hemoglobin Concent 33.7 32.0-36.0 g/dL Red Cell Distribution Width 14.2 11.8-14.3 % Platelet Count 142 140-450 10^3/uL Mean Platelet Volume 8.2 6.9-10.8 fL Neutrophils (%) (Auto) 91.3 H 37.0-80.0 % Lymphocytes (%) (Auto) 6.8 L 10.0-50.0 % Monocytes (%) (Auto) 0.3 0.0-12.0 % Eosinophils (%) (Auto) 1.2 0.0-7.0 % Basophils (%) (Auto) 0.4 0.0-2.0 % Neutrophils # (Auto) 5.4 1.6-8.6 10 ^3/uL Lymphocytes # (Auto) 0.4 0.4-5.4 10 ^3/uL Monocytes # (Auto) 0 0-1.3 10 ^3/uL Eosinophils # (Auto) 0.1 0-0.8 10 ^3/uL Basophils # (Auto) 0 0-0.2 10 ^3/uL Nucleated Red Blood Cells 0.0 % Sodium Level 136 136-145 mmol/L Potassium Level 4.2 3.5-5.1 mmol/L Chloride Level 97 L 98-107 mmol/L Carbon Dioxide Level 30 20-31 mmol/L Anion Gap 9 5-15 Blood Urea Nitrogen 28 H 9-23 mg/dL Creatinine 1.23 0.700-1.30 mg/dL Glomerular Filtration Rate Calc 60 >90 mL/min BUN/Creatinine Ratio 22.8 H 10.0-20.0 Serum Glucose 136 H 74-106 mg/dL Calcium Level 9.4 8.7-10.4 mg/dL Troponin I High Sensitivity 9 </=54 ng/L B-Type Natriuretic Peptide 76.41 0-100 pg/mL Thyroid Stimulating Hormone (TSH) 2.02 0.55-4.78 uIU/mL Assessment/Plan Assessment/Plan # possible COPD exacerbation # rule out influenza and COVID -currently on methylprednisolone 40 mg daily -breathing treatments -CXR showed no acute changes -closely monitor for respiratory distress # seen CAD status post CABG -resume home meds # hypertension -resume home meds # CHF likely not in exacerbation # rule out PE -ordered CT angiogram of chest PUD PPX: Not indicated VTE PPX: Lovenox Diet: Cardiac diet Goals of care discussed with the patient for more than 29 minutes: Full code status Case discussed with Dr. Cole, patient and nurse Plan discussed with: Patient My Orders Orders - BRUNILDA BROWN RESIDENT Procedure Category Date Status Time Admit ADMIT 04/24/24 Transmitted 21:31 Allergies ZHANG 04/24/24 In Process 21:31 Code Status CODE 04/24/24 Transmitted 21:31 Sodium Chloride Lock PHA 04/24/24 In Process (Saline Lock Ns) 22:00 Enoxaparin Sodium PHA 04/25/24 In Process (Lovenox) 10:00 Complete Blood Count LAB 04/25/24 Verified 04:00 Comprehensive LAB 04/25/24 Verified Metabolic Panel 04:00 Cardiac DIET 04/25/24 Transmitted Diet-2gna,Lofat,Lochol Breakfast Echo 2d Mode Cardiac US 04/24/24 Logged DOP 21:31 Condition: Stable ZHANG 04/24/24 In Process 21:31 Acetaminophen Tablet PHA 04/24/24 In Process (Tylenol Tablet) 21:45 Nitroglycerin PHA 04/24/24 In Process Sublingual (Ntrostat 21:45 Morphine Sulfate PHA 04/24/24 In Process Injection 21:45 Oxygen By Nasal RT 04/24/24 Transmitted Cannula 21:31 Stat Ekg For Chest ZHANG 04/24/24 In Process Pain 21:31 Notify Of Changes ZHANG 04/24/24 In Process From Base 21:31 Hepatic Panel LAB 04/24/24 In Process 21:31 Covid19 Antigen Magda LAB 04/24/24 In Process Rapid Influenza A&B LAB 04/24/24 In Process 21:31 PTPTT LAB 04/24/24 In Process 21:31 Urinalysis LAB 04/24/24 Logged 21:31 Magnesium LAB 04/24/24 In Process 21:31 Drug Screen LAB 04/24/24 Logged 21:31 Blood Alcohol LAB 04/24/24 In Process 21:31 D-Dimer LAB 04/24/24 In Process 21:31 Methylprednisolone PHA 04/25/24 Logged Sod Succ (Solu Medrol 10:00 Levalbuterol Hcl PHA 04/25/24 Logged (Xopenex Medneb) 00:00 Ipratropium Medneb PHA 04/25/24 Logged (Atrovent Medneb) 00:00 Atenolol Tablet PHA 04/25/24 Logged (Tenormin Tablet) 10:00 Pravastatin Sodium PHA 04/25/24 Logged Tablet (Pravachol Tab 10:00 Date of Service: Apr 24, 2024 Billing Provider: DANIELE COLE MD Common Visit Codes: [id number] INP/OBS CARE (HIGH) Secondary Visit Codes: [id number] CARE PLAN 30 MINUTES BRUNILDA BROWN RESIDENT Apr 24, 2024 22:34 DANIELE COLE MD Apr 25, 2024 08:49
[2024-04-24 22:41] LABS: INR 1.08 (0.9-1.15); Partial Thromboplastin Time 34.1 SEC (24.5-34.5); Prothrombin Time 11.4 sec (9.3-11.8)
[2024-04-24 22:47] LABS: COVID19 ANTIGEN SOFIA FIA NEGATIVE (NEGATIVE)
[2024-04-24 23:16] LABS: Rapid Influenza A Negative (Negative); Rapid Influenza B Negative (Negative)
[2024-04-24 23:23] VITALS: BP 102/70; PULSE 100; RESP 18; TEMP 98.2; O2SAT 95
[2024-04-24] MEDS: AZITHROMYCIN 500MG/ 250ML 250 ML IV ONE (23:39)
[2024-04-25] VITALS (15 sets, daily range): BP systolic 112–122; BP diastolic 63–81; PULSE 76–106; RESP 16–20; TEMP 98–98.8; O2SAT 92–100
[2024-04-25] MEDS: IPRATROPIUM BROM 0.5 MG/2.5ML INH SOL NEB SCH (00:29)
[2024-04-25] MEDS: LEVALBUTEROL HCL 1.25 MG/3 ML NEB NEB SCH (00:29)
[2024-04-25] MEDS ORDERED: IOHEXOL 350 MG/ML 100ML IJ ONE (08:11)
[2024-04-25 09:36] LABS: Basophils # (auto) 0 10 ^3/uL (0-0.2); Basophils % (auto) 0.2 % (0.0-2.0); Eosinophils # (auto) 0 10 ^3/uL (0-0.8); Eosinophils % (auto) 0.1 % (0.0-7.0); Hematocrit 36.3 % (41.0-53.0); Hemoglobin 12.4 g/dL (13.5-17.5); Lymphocytes # (auto) 0.2 10 ^3/uL (0.4-5.4); Lymphocytes % (auto) 8.6 % (10.0-50.0); Mean Corpuscular Hemoglobin 31.8 pg (28.0-32.0); Mean Corpuscular Hgb Conc. 34.1 g/dL (32.0-36.0); Mean Corpuscular Volume 93.4 fL (80.0-100.0); Monocytes # (auto) 0 10 ^3/uL (0-1.3); Monocytes % (auto) 0.3 % (0.0-12.0); Neutrophils % (auto) 90.8 % (37.0-80.0); Platelet Count (auto) 169 10^3/uL (140-450); Red Blood Cells 3.89 10^6/uL (4.5-5.90); White Blood Cell 2.2 10^3/uL (4.4-10.8)
--- NOTE | 2024-04-25 09:39 | DVH ---
CTA Chest with intravenous contrast INDICATION: ELEVATED D DIMER; DYSPNEA COMPARISON: CT ANGIO CHEST CONTRAST on DOS: 04/01/19 TECHNIQUE: Multidetector spiral CTA of the chest was performed of the chest with intravenous contrast . PULMONARY ANGIOGRAPHY PROTOCOL was utilized using a bolus-tracking technique centered on the main p ulmonary artery. Axial, coronal and sagittal multiplanar and MIP reformats were performed. CONTRAST: Type of contrast: Omnipaque 350 Contrast injected: 100 ml Radiation dose : Chest: CTDI volume is 14.8 mGy. Dose-length product is 400.49 mGy*cm The dose indicators for CT are the volume computed Tomography (CT) dose Index (CTDIvol) and the dose Length product (DLP), and are measured in units of mGy and mGy-cm, respectively. These indicators are not patient dose, but values generated from the CT scanner acquisition factors. The report includes radiation exposure data for exposures received during this examination. Findings: Pulmonary artery: No pulmonary embolism Lower neck: Normal thyroid. Lungs: Emphysematous changes in both lungs. Stable 6 mm nodule right upper lobe. Atelectasis and scar ring in the lung bases. Heart/Vascular Structures: Normal heart size. No pericardial effusion. Lymph Nodes: No adenopathy Pleura: No pleural effusion or significant pneumothorax. Musculoskeletal: No acute osseous abnormality. Soft tissues: Normal. Upper abdomen: Bilateral renal cysts. IMPRESSION: 1. No pulmonary embolism. 2. Smoking-related lung disease. Stable 6 mm nodule right upper lobe. HS:Y
[2024-04-25] MEDS ORDERED: ENOXAPARIN SOD 100 MG/1 ML SYRINGE SC SCH (10:00)
[2024-04-25] MEDS ORDERED: ENOXAPARIN SOD 40 MG/0.4 ML SYRINGE SC SCH (10:00)
[2024-04-25 10:09] LABS: Albumin 4.6 g/dL (3.2-4.8); Alkaline Phosphatase 106 U/L (46-116); Anion Gap 10 (5-15); Aspartate Aminotransferase 25 U/L (13-40); BUN/Creatinine Ratio 21.8 (10.0-20.0); Bilirubin, Total 0.6 mg/dL (0.2-1.0); Calcium 9.9 mg/dL (8.7-10.4); Carbon Dioxide 28 mmol/L (20-31); Potassium 4.7 mmol/L (3.5-5.1); Total Protein 6.8 g/dL (5.7-8.2)
[2024-04-25 10:33] LABS: Alanine Aminotransferase 40 U/L (7-40); Blood Urea Nitrogen 27 mg/dL (9-23); Chloride 95 mmol/L (98-107); Glucose 242 mg/dL (74-106); Sodium 133 mmol/L (136-145)
[2024-04-25] MEDS ORDERED: METF-370 PO (11:18)
[2024-04-25] MEDS ORDERED: ATOR40TA52 PO (11:18)
[2024-04-25] MEDS ORDERED: METO25TA5 PO (11:18)
[2024-04-25] MEDS: ACCU-CHEK COMFORT CURVE STRIP VI SCH (11:30)
[2024-04-25] MEDS ORDERED: DEXTROSE (50%) 50ML SYRG IV PRN (11:30)
[2024-04-25] MEDS: methylPREDNISolone SOD SUCC 40 MG/ML VL IV SCH (11:44)
[2024-04-25] MEDS: ATENOLOL 25 MG TAB PO SCH (11:45)
[2024-04-25] MEDS: InsuLIN REG 1unit/0.01ml Soln (100units/ml) SC SCH (17:21)
--- NOTE | 2024-04-25 17:42 | DVHPNRES ---
Progress Note Date Seen: Apr 25, 2024 Resident Creating Document: SHERRY LENTZ RESIDENT Medical Necessity Reason Pt with a Central, PICC or Fol: No Subjective Review of Systems Patient is a 78-year-old male with past medical history of CHF, DM, COPD, CAD s/p CABG, invasive bladder cancer s/p bladder removal, pancreatic cancer, aortic aneurysm and hearing loss who came in due to shortness of breath. According to the patient and at bedside, patient completed his 2nd chemotherapy session on Sunday, on Tuesdays spiked a fever of 102 overnight and last night while use having increasing shortness of breaths, his checked his SpO2 which was 84% and that is what prompted this visit to the hospital. In the ED patient was noted to have a D-dimer 4.83, patient was started on therapeutic Lovenox and CT angiography was ordered which showed no pulmonary embolism. Smoking related lung disease. Stable 6 mm nodule right upper lung lobe. Past surgical history: S/p CABG, bladder removal surgery Past Hospitalization: 1 year ago for similar symptoms Social & Personal history: Patient lives with . Smokes half a pack of cigarettes per day for 51 years. Denies using alcohol, denies using Allergies: Drugs. Denies Patient seen and examined at bedside. Patient is alert and oriented to time, place person and responding to all questions. General: Fatigue, fever, chills Eyes: No Pain, No Vision change, No Conjunctivae inflammation, No Eyelid inflammation, No Other, No Redness ENT: No Ear pain, No Ear discharge, No Nose pain, No Nose discharge, No Nose congestion, No Mouth pain, No Mouth swelling, No Throat pain, No Throat swelling, No Other Cardiovascular: No Chest Pain, Palpitations, No Orthopnea, No Paroxysmal No Dyspnea, No Edema, No Lt Headedness, No Other Respiratory: No Cough, No Dry, No Shortness of breath, SOB with exertion, No Wheezing, No Hemoptysis, No Pleuritic Pain, No Sputum, No Other Gastrointestinal: No Nausea, No Vomiting, No Abdominal Pain, No Diarrhea, No Constipation, No Melena, No Hematochezia, No Other Genitourinary: No Dysuria, No Frequency, No Incontinence, No Hematuria, No Retention, No Other Musculoskeletal: No other, No neck pain, No shoulder pain, No arm pain, No back pain, No hand pain, No leg pain, No foot pain Skin: No Rash, No Lesions, No Jaundice, No Bruising, No Other Objective vital signs Vital Sign Date Time Temp Pulse Resp B/P (MAP) Pulse Ox O2 Delivery O2 Flow Rate FiO2 04/25/24 12:30 98.8 89 16 120/80 (93) 94 98.8 04/25/24 10:00 Room Air* 0 21 Total Intake and Output 04/24/24 04/24/24 04/25/24 15:00 23:00 07:00 Intake Total 490 ml Balance 490 ml medications Current Medications Medications Dose Ordered Sig/Keeley Route Start Time Stop Time Status Last Admin Dose Admin Sodium Chloride 10 ml Q8HR IV 04/24/24 22:00 04/25/24 14:04 10 ML Acetaminophen 650 mg Q6HP PRN PO 04/24/24 21:45 Morphine Sulfate 2 mg Q30M PRN IV 04/24/24 21:45 Methylprednisolone Sodium Succinate 40 mg DAILY IV 04/25/24 10:00 04/25/24 11:44 40 MG Levalbuterol HCl 0.625 mg Q6HR NEB 04/25/24 00:00 04/25/24 11:18 0.625 MG Ipratropium [place] 0.5 mg Q6HR NEB 04/25/24 00:00 04/25/24 11:18 0.5 MG Atenolol 25 mg DAILY PO 04/25/24 10:00 04/25/24 11:45 25 MG Pravastatin Sodium 20 mg HS PO 04/25/24 22:00 Azithromycin 250 ml @ 125 mls/hr DAILY IV 04/26/24 10:00 Diagnostic Test (Pha) 1 strip ACHS 04/25/24 11:30 04/25/24 17:09 1 STRIP Insulin Human Regular ACHS SC 04/25/24 11:30 04/25/24 17:26 3 UNITS Dextrose 50 ml UD PRN IV 04/25/24 11:30 Examination General Appearance: Cooperative. Well developed. Well nourished. NAD Head Exam: Normal inspection Neck Exam: Normal inspection. Non-tender. Normal alignment Pulmonary/Respiratory: Chest non-tender. Clear bilateral breath sounds, no crackles, no wheezing. Cardiovascular/Chest: Regular rate and rhythm. Murmur heard loudest in the mitral area. No JVD. Peripheral Pulses: 2+ Radial (R). 2+ Radial (L). 2+ Pedal (R). 2+ Pedal (L) Abdominal Exam: Normal bowel sounds. Soft. normal abdomen, no visible veins, Nontender. No hepatospenomegaly. No masses Ankle Exam: Negative ankle edema Lower extremities: 1+ lower extremity edema Neuro/Mental Status: A&O x4. Coherent. Thoughts/Psych: Normal thought pattern. Appropriate mood and affect. Good judgement and insight Skin Exam: Normal inspection. Normal color. Warm. Dry laboratory and microbiology Laboratory Tests 04/25/24 09:15 Test 04/25/24 09:15 Range/Units Serum Glucose 242 #H 74-106 mg/dL Labs and/or images reviewed: Labs reviewed by me, Image(s) reviewed by me Problem List/Assessment/Plan Problem List/Assessment/Plan Acute COPD exacerbation Ruled out pulmonary embolism Possible CHF exacerbation - CXR: No acute disease - CTA: No pulmonary embolism. Smoking related lung disease. Stable 6 mm nodule right upper lobe. - IV azithromycin - ipratropium levalbuterol med nebs - IV methylprednisolone 40 mg CAD s/p CABG Hypertension - aspirin 81 mg - pravastatin 20 mg - atenolol 25 mg Type 2 diabetes - mild sliding scale insulin History of pancreatic cancer on chemotherapy, received 2 sessions so far History of invasive bladder cancer s/p bladder removal -monitor DVT prophylaxis: Levonox 40mg Goals of care: Full code, discussed for >16 minutes on 04/25/2024 Plan discussed with patient Plan discussed with Dr. Velez Plan discussed with: Patient, Spouse, Other (RN) My Orders My Orders Orders - SHERRY LENTZ RESIDENT Procedure Category Date Status Time Glucose Blood PHA 04/25/24 In Process (Accu-Chek Comfort 11:30 Insulin R (Human) PHA 04/25/24 In Process (Insulin R) 11:30 Dextrose 50% Syringe PHA 04/25/24 In Process 11:30 Respiratory Culture LEI 04/25/24 In Process W/ Gs 11:32 Date of Service: Apr 25, 2024 Billing Provider: GINO VELEZ MD Common Visit Codes: [id number] INP/OBS CARE(HIGH) SHERRY LENTZ Apr 25, 2024 17:42 GINO VELEZ MD Apr 28, 2024 12:41
--- NOTE | 2024-04-25 19:20 | DVHSR ---
APPROVED REPORT EXAM: Two-dimensional and M-mode echocardiogram with Doppler and color Doppler. Blood Pressure: 122/81 mmHg INDICATION Heart Failure Surgery/Intervention CABG: RISK FACTORS Height: 5'10", Weight: 153 DIMENSIONS LVDd5.1 (3.8-5.7cm)LA (2D)3.6 (1.9-4.0cm)Aortic Root4.4 (2.0-3.7cm) LVDs4.0 (2.5-4.0cm)LA (MM) (1.9-4.0cm)Aortic Cusp Exc1.8 (1.5-2.0cm) EF (%) 50.0 (55-70%)Rt. Atrium4.6 (1.9-4.0cm)Asc. Aorta3.4 cm IVSd0.8 (0.7-1.1cm)RV (D)4.2 (1.8-2.4cm) PWd0.9 (0.7-1.1cm) Mitral Valve MitralMitral Stenosis E wave0.67m/sMV Mean GR.mmHg A wave1.14m/sMV Peak GR.mmHg E/A ratio0.62D MVAcm2 DECEL [id number] 1/2 [place] Aortic Valve Aortic ValveAortic Stenosis V11.27m/Debra Mean GR.5mmHg V21.54m/Debra Peak GR.9mmHg LVOT Diameter2.4 (1.8-2.4cm)Doppler AVA3.73cm2 Pulmonic Valve V20.89m/s Other Information Quality : Technically LimitedRhythm : Technically limited study due to body habitus. Conclusion Technically good study. Sinus rhythm. Aortic root enlargement. RV and RA enlargement. Moderate mitral annular calcification at the base of the posterior mitral leaflet. Calcification of the aortic leaflets but adequate excursion. The tricuspid and pulmonic normal. Left ventricular function is preserved at 50% with normal RV function. Sigmoid septum noted. Mild TR. No pericardial effusion masses or vegetations noted.
[2024-04-25] MEDS: PRAVASTATIN SODIUM 20 MG TAB PO SCH (21:42)
[2024-04-25] MEDS ORDERED: ATORVASTATIN 20 MG TAB PO SCH (22:00)
[2024-04-26 01:00] VITALS: BP 94/49; PULSE 79; RESP 17; TEMP 98; O2SAT 93
[2024-04-26 05:00] VITALS: BP_SYST 117; BP_SYST 153; BP_DIAS 108; BP_DIAS 78; PULSE 77; PULSE 88; RESP 18; TEMP 98; TEMP 98.1; O2SAT 90; O2SAT 96
[2024-04-26 06:25] VITALS: PULSE 95; RESP 16; O2SAT 90; O2SAT 95
[2024-04-26 06:31] VITALS: PULSE 98; RESP 16; O2SAT 96
[2024-04-26 07:31] LABS: Hematocrit 35.7 % (41.0-53.0); Hemoglobin 12.3 g/dL (13.5-17.5); Mean Corpuscular Hemoglobin 31.8 pg (28.0-32.0); Mean Corpuscular Hgb Conc. 34.4 g/dL (32.0-36.0); Mean Corpuscular Volume 92.6 fL (80.0-100.0); Platelet Count (auto) 170 10^3/uL (140-450); Red Blood Cells 3.85 10^6/uL (4.5-5.90); Red Cell Distribution Width 14.2 % (11.8-14.3); White Blood Cell 2.2 10^3/uL (4.4-10.8)
[2024-04-26 07:34] LABS: Band Neutrophils % (manual) 0; Basophils % (manual) 0 (0.0-2.0); Blast Cells 0; Eosinophils % (manual) 0 (0-7); Metamyelocytes % 0; Myelocytes % 0; Promyelocytes % 0; Reactive Lymphocytes 0
[2024-04-26] MEDS ORDERED: ACET-1882 PO (07:40)
[2024-04-26] MEDS ORDERED: AZIT-43 PO (07:40)
[2024-04-26] MEDS ORDERED: PRED20TA2 PO (07:40)
[2024-04-26 07:42] LABS: Anion Gap 7 (5-15); Calcium 9.7 mg/dL (8.7-10.4); Carbon Dioxide 28 mmol/L (20-31)
[2024-04-26 07:47] LABS: BUN/Creatinine Ratio 27.5 (10.0-20.0)
[2024-04-26 07:48] LABS: Chloride 100 mmol/L (98-107); Potassium 5.1 mmol/L (3.5-5.1); Sodium 135 mmol/L (136-145)
[2024-04-26 07:49] LABS: Blood Urea Nitrogen 28 mg/dL (9-23); Glucose 141 mg/dL (74-106)
[2024-04-26 08:12] VITALS: BP 106/71; PULSE 93; RESP 20; TEMP 97.9; O2SAT 92
--- NOTE | 2024-04-26 09:25 | DVHDSRES ---
Discharge Summary Date of Admission Resident Creating Document: LEROY ACOSTA RESIDENT Apr 24, 2024 at 21:31 Date of Discharge: Apr 26, 2024 Labs/Diagnostic Data: Laboratory Results Test 04/26/24 06:26 04/26/24 05:08 04/25/24 09:15 04/24/24 22:15 POC Glucose 133 mg/dl (70-106) White Blood Count 2.2 10^3/uL (4.4-10.8) Red Blood Count 3.85 10^6/uL (4.5-5.90) Hemoglobin 12.3 g/dL (13.5-17.5) Hematocrit 35.7 % (41.0-53.0) Mean Corpuscular Volume 92.6 fL (80.0-100.0) Mean Corpuscular Hemoglobin 31.8 pg (28.0-32.0) Mean Corpuscular Hemoglobin Concent 34.4 g/dL (32.0-36.0) Red Cell Distribution Width 14.2 % (11.8-14.3) Platelet Count 170 10^3/uL (140-450) Mean Platelet Volume 7.7 fL (6.9-10.8) Neutrophils (%) (Auto) % (37.0-80.0) Lymphocytes (%) (Auto) % (10.0-50.0) Monocytes (%) (Auto) % (0.0-12.0) Basophils (%) (Auto) % (0.0-2.0) Neutrophils # (Auto) 10 ^3/uL (1.6-8.6) Lymphocytes # (Auto) 10 ^3/uL (0.4-5.4) Monocytes # (Auto) 10 ^3/uL (0-1.3) Sodium Level 135 mmol/L (136-145) Potassium Level 5.1 mmol/L (3.5-5.1) Chloride Level 100 mmol/L (98-107) Carbon Dioxide Level 28 mmol/L (20-31) Anion Gap 7 (5-15) Blood Urea Nitrogen 28 mg/dL (9-23) Creatinine 1.02 mg/dL (0.700-1.30) Glomerular Filtration Rate Calc 75 mL/min (>90) BUN/Creatinine Ratio 27.5 (10.0-20.0) Serum Glucose 141 mg/dL (74-106) Calcium Level 9.7 mg/dL (8.7-10.4) Eosinophils (%) (Auto) 0.1 % (0.0-7.0) Eosinophils # (Auto) 0 10 ^3/uL (0-0.8) Basophils # (Auto) 0 10 ^3/uL (0-0.2) Nucleated Red Blood Cells 0.0 % Total Bilirubin 0.6 mg/dL (0.2-1.0) Aspartate Amino Transferase (AST) 25 U/L (13-40) Alanine Aminotransferase (ALT) 40 U/L (7-40) Alkaline Phosphatase 106 U/L (46-116) Total Protein 6.8 g/dL (5.7-8.2) Albumin 4.6 g/dL (3.2-4.8) Influenza Type A Antigen Negative (Negative) Influenza Type B Antigen Negative (Negative) SARS-CoV-2 Antigen (Rapid) Negative (NEGATIVE) Test 04/24/24 21:56 04/24/24 13:10 Prothrombin Time 11.4 sec (9.3-11.8) Prothrombin Time INR 1.08 (0.9-1.15) Activated Partial Thromboplast Time 34.1 SEC (24.5-34.5) D-Dimer, Quantitative 4.83 mg/L FEU (0.0-0.49) Magnesium Level 1.7 mg/dL (1.6-2.6) Direct Bilirubin 0.2 mg/dL (<0.3) Plasma/Serum Blood Alcohol 3.5 mg/dL (<10) Troponin I High Sensitivity 9 ng/L (</=54) B-Type Natriuretic Peptide 76.41 pg/mL (0-100) Thyroid Stimulating Hormone (TSH) 2.02 uIU/mL (0.55-4.78) Other Laboratory Tests 04/26/24 05:08 Brief Hx & Hospital Course: Luis White is a 78-year-old male patient who presents to the ED with chief complaint of progressive dyspnea from functional class II to functional class IV two days before his admission associated with fever. Patient reports completing 2nd session of chemotherapy Sunday, presented fever on Sunday (102 F), and SpO2 which was 84%, prompting visit to ED. denies palpitation, syncope, chest pain, nausea, vomiting, diarrhea, abdominal pain, dysuria, recent travel, lower limb swelling, sick contacts and motor or sensory deficits Past medical history: Diabetes, hypertension, dyslipidemia, HFpEF (LVEF 50%), coronary artery disease status post CABG, COPD with no home oxygen requirement last COPD exacerbation one year ago, invasive bladder cancer status post bladder resection, pancreatic cancer currently on chemotherapy, aortic aneurysm, hearing loss. Surgical history: CABG, bladder resection Social history: Patient lives with . Current tobacco abuse (approximately 30 pack-year history of smoking). Denies denies current alcohol and other drug abuse. Allergies: Drugs. Denies Home medication: Tylenol, aspirin 81 mg p.o. daily, atorvastatin 40 mg p.o. daily, metformin 500 mg p.o. b.i.d., metoprolol 25 mg p.o. b.i.d. Brief hospital course: COPD exacerbation requiring IV antibiotics (azithromycin, was discharged with p.o. azithromycin), IV steroids and bronchodilators. Patient did not require during admission oxygen supplementation, target SpO2 above 88%. Completed chest angio CT which ruled out pulmonary embolism, did describe smoking related lung disease and a stable 6 mm lung nodule in the right upper lobe. Patient presented stable leukopenia, with no neutropenia, monitored patient for 48 hours. Completed echocardiogram which showed LVEF 50%, enlarged RV and RA, normal RV function, sigmoid septum noted, calcification of the aortic leaflets but adequate excursion, moderate mitral annular calcification at the base of the posterior mitral valve, mild TR, aortic root enlargement. Patient hemodynamically stable, asymptomatic, in condition to be discharged home. Was granted under optimal medical therapy (azithromycin and prednisone p.o. for a total of five days), gave advice on healthy lifestyle habits, and follow-up as outpatient with PCP, oncologist, certified anesthesiologist assistant and drawbench operator helper. DIAGNOSIS Acute COPD exacerbation - no need for home oxygen Ruled out pulmonary embolism Chronic diastolic congestive heart failure (HFpEF, LVEF 50%) CAD s/p CABG Hypertension Dyslipidemia Aortic aneurysm - stable Type 2 diabetes Pancreatic cancer on chemotherapy, received 2 sessions so far History of invasive bladder cancer s/p bladder resection Goals of care discussed patient for over 18 minutes: Full code status Discussed plan with Dr. Velez, patient and nurses. Physical examination Patient lying in bed, in no acute distress General: Lucid, afebrile, mucosae are moist Cardiovascular: Normal S1 and S2. Holosystolic murmur intensity 3/6 best heard in lower left sternal border. No gallops or rubs Respiratory: Normal ventilation mechanics. Clear lung sounds on auscultation Abdomen: Soft, nontender, no organomegaly, normal bowel sounds MSK/skin: Mobilizes 4 limbs. Skin is dry and warm Neurological: Oriented in 3 spheres. No motor no sensitive deficits. Pupils are isocoric and reactive Condition at Discharge: Good Final Diagnosis/Problems List Acute COPD exacerbation - no need for home oxygen Ruled out pulmonary embolism Chronic diastolic congestive heart failure (HFpEF, LVEF 50%) CAD s/p CABG Hypertension Dyslipidemia Aortic aneurysm - stable Type 2 diabetes Pancreatic cancer on chemotherapy, received 2 sessions so far History of invasive bladder cancer s/p bladder resection Discharge Disposition: Home SNF Discharge Will this Physician continue t: No Discharge Instruct/Medications Diet: Cardiac 2g Na,low cholest Activity: No Restrictions, As Tolerated Follow Up/Referral: PCP Oncologist Psychiatric Social Worker Medications: Per EMR (Azithromycin and prednisone total of 5 days) Discharge Statement: "Patient was advised to return to the ER or call 911 if any headaches, dizziness, shortness of breath, chest pain, abdominal pain, bleeding, fevers, or worsening of medical condition. Patient was counseled about treatment plan, medications, possible side effects, patientverbalized understanding. All questions were answered to the best of my ability. This discharge took greater then 30 minutes in planning, reviewing documentation, counseling the patient, and discussing with other team members." ASSESSMENT ASSESSMENT Assessment COPD exacerbation Date of Service: Apr 26, 2024 Billing Provider: GINO VELEZ MD Common Visit Codes: [id number] DISCH DAY >30min LEROY ACOSTA RESIDENT Apr 26, 2024 09:25 GINO VELEZ MD Apr 28, 2024 12:41
[2024-04-26 09:38] LABS: Lymphocytes % (manual) 26 (10.0-50.0); Monocytes % (manual) 1 (0-12); Platelet Estimate Adequate
[2024-04-26] MEDS ORDERED: AZITHROMYCIN 500MG/ 250ML 250 ML IV SCH (10:00)
[2024-04-26] MEDS ORDERED: ASPirin 81 mg TAB PO SCH (10:00)
[2024-04-26] MEDS ORDERED: ENOXAPARIN SOD 40 MG/0.4 ML SYRINGE SC SCH (10:00)
== END 2024-04-26 08:35 | disposition home or self-care (01) | DRG 191 ==
LOC: ER 12:35 → OVERFLOW 21:31 → WEST WING 21:35
PROVIDERS: ADMIT Student in an Organized Health Care Education/Training Program; ATTEND Student in an Organized Health Care Education/Training Program
DX: J44.1 Chronic obstructive pulmonary disease with (acute) exacerbation (principal); C25.9 Malignant neoplasm of pancreas, unspecified; I50.32 Chronic diastolic (congestive) heart failure; I71.9 Aortic aneurysm of unspecified site, without rupture; Z20.822 Contact with and (suspected) exposure to COVID-19; I25.10 Atherosclerotic heart disease of native coronary artery without angina pectoris; J98.4 Other disorders of lung; I11.0 Hypertensive heart disease with heart failure; E78.5 Hyperlipidemia, unspecified; E11.9 Type 2 diabetes mellitus without complications; Z95.1 Presence of aortocoronary bypass graft; Z79.899 Other long term (current) drug therapy; Z85.51 Personal history of malignant neoplasm of bladder
CPT/HCPCS: 36415; 71045; 71275; 80048; 80053; 80076; 80320; 82962; 83735; 83880; 84443; 84484; 85007; 85025; 85027; 85379; 85610; 85730; 87070; 87205; 87426; 87804; 93005; 93306; 94640; 96365; 96375; G0378; J1815

== ENCOUNTER 2024-08-30 00:35 | Inpatient (IN) | payer OTHER, MEDICARE ==
[2024-08-29 09:49] VITALS: BP 97/69; PULSE 96; RESP 16; TEMP 98.3; O2SAT 92
[~2024-08-30] VITALS: Ht 175.3 cm; Wt 69.5 kg
[~2024-08-30 00:35] MED LIST changes: +ACET-1882 PO; -ATEN-60 PO; +ATOR40TA52 PO; +AZIT-43 PO; +METF-370 PO; +METO25TA5 PO; -PRAV20TA3 PO; +PRED20TA2 PO
[2024-08-30 01:10] LABS: Hematocrit 28.7 % (41.0-53.0); Hemoglobin 9.5 g/dL (13.5-17.5); Mean Corpuscular Hemoglobin 35.9 pg (28.0-32.0); Mean Corpuscular Volume 108.9 fL (80.0-100.0)
--- NOTE | 2024-08-30 01:19 | ED.PDOC ---
SOB-HPI HPI Comments 78-year-old male with a history of COPD, CAD, pancreatic and bladder cancer in remission, brought in by family complaining of shortness of breath. Patient states he does not use oxygen at home. He states for the past week has had a productive cough for the past week and progressively worsening shortness of breath for the past 3 days. He denies any sick contacts, fever, nausea, vomiting, chest pain or edema. Chief Complaint: Shortness of Breath Time Seen by MD: 01:18 Primary Care Provider: ANKITA Reviewed notes: Nurses Notes Information Source: Patient Mode of Arrival: Ambulatory Severity: Moderate Timing: Days Duration: Since onset Context: At Rest, With Light Exertion History of: COPD Associated Signs and Symptoms: Cough If cough with SOB: Productive, Clear Past Medical History PAST MEDICAL HISTORY: CAD, Cancer (Bladder cancer), COPD Surgical History: CABG Surgical History (Other): Colostomy Family History Family History: Reviewed,noncontributory to illness Social History Smoker: Non-Smoker Alcohol: Denies ETOH Use Drugs: Denies Drug Use Lives In: Home Constitutional: denies: chills, diaphoresis, fatigue, fever, malaise, sweats, weakness, others EENTM: denies: blurred vision, double vision, ear bleeding, ear discharge, ear drainage, ear pain, ear ringing, eye pain, eye redness, hearing loss, mouth pain, mouth swelling, nasal discharge, nose bleeding, nose congestion, nose pain, photophobia, tearing, throat pain, throat swelling, voice changes, others Respiratory: reports: cough, SOB at rest, shortness of breath, SOB with excertion; denies: hemoptysis, orthopnea, stridor, wheezing, others Cardiovascular: denies: chest pain, dizzy spells, diaphoresis, Dyspnea on exer tion, edema, irregular heart beat, left arm pain, lightheadedness, palpitations, PND, syncope, others Gastrointestinal: denies: abdomen distended, abdominal pain, blood streaked bowels, constipated, diarrhea, dysphagia, difficulty swallowing, hematemesis, melena, nausea, poor appetite, poor fluid intake, rectal bleeding, rectal pain, vomiting, others Genitourinary: denies: burning, dysuria, flank pain, frequency, hematuria, incontinence, penile discharge, penile sore, pain, testicle pain, testicle swelling, urgency, others Neurological: denies: dizziness, fainting, headache, left sided numbness, left sided weakness, numbness, paresthesia, pre-existing deficit, right sided numbness, right sided weakness, seizure, speech problems, tingling, tremors, weakness, others Musculoskeletal: denies: back pain, gout, joint pain, joint swelling, muscle pain, muscle stiffness, neck pain, others Integumetry: denies: bruises, change in color, change in hair/nails, dryness, laceration, lesions, lumps, rash, wounds, others Allergic/Immunocompromised: denies: Difficulty Healing, Frequent Infections, Hives, Itching, others Hematologic/Lymphatic: denies: anemia, blood clots, easy bleeding, easy bruising, swollen glands, others Endocrine: denies: excessive hunger, excessive sweating, excessive thirst, excessive urination, flushing, intolerance to cold, intolerance to heat, unexplained weight gain, unexplained weight loss, others Psychiatric: denies: anxiety, bipolar disorder, depression, hopeless, panic disorder, schizophrenia, sleepless, suicidal, others Physical Exam General Appearance: Mild Distress HEENT: Other (Pupils and face symmetric. Moist mucous membranes.) Neck: Full Range of Motion, Normal Inspection Respiratory: Decreased Breath Sounds, No Accessory Muscle Use, Rhonchi, Other (Mild respiratory distress and tachypnea. Productive sounding cough.) Cardiovascular: No Edema, No JVD, Tachycardia Breast Exam: Deferred Gastrointestinal: Non Tender, Soft Genitalia: Deferred Pelvic: Deferred Rectal: Deferred Extremities: Normal inspection, Normal range of motion, Non-tender, No pedal edema Neurologic: Alert (Oriented x4), Normal Affect, Normal Mood, Other (Ambulatory) Cerebellar Function: NOT DONE Reflexes: NOT DONE Skin: Dry, Normal Color, Warm Lymphatic: NOT DONE EKG EKG : Comments Sinus tach, rate 103, normal intervals, occasional PVCs, normal axis, possible old anteroseptal infarct, nonspecific T change. Was a procedure done? Was a procedure done?: No Differential Dx Differential Diagnosis: Asthma, Bronchitis, CHF, COPD, Pneumonia, Respiratory Distress, URI X-Ray, Labs, Meds, VS Vital Signs Date Time Temp Pulse Resp B/P (MAP) Pulse Ox O2 Delivery O2 Flow Rate FiO2 08/30/24 04:39 98 18 98/61 (73) 93 7/5/25 02:41 103 20 96/61 (73) 91 08/30/24 01:35 20 92 Nasal Cannula* 3 32 08/30/24 00:47 103 08/30/24 00:40 100.1 99 20 120/64 (82) 95 100.1 08/30/24 00:40 20 95 Nasal Cannula* 3 32 Lab Test 08/30/24 01:34 08/30/24 00:45 Range/Units Lactic Acid Level 2.0 0.4-2.0 mmol/L Troponin I High Sensitivity 9 9 </=54 ng/L White Blood Count 28.2 H 4.4-10.8 10^3/uL Red Blood Count 2.63 L 4.5-5.90 10^6/uL Hemoglobin 9.5 L 13.5-17.5 g/dL Hematocrit 28.7 L 41.0-53.0 % Mean Corpuscular Volume 108.9 H 80.0-100.0 fL Mean Corpuscular Hemoglobin 35.9 H 28.0-32.0 pg Mean Corpuscular Hemoglobin Concent 33.0 32.0-36.0 g/dL Red Cell Distribution Width 23.4 H 11.8-14.3 % Platelet Count 152 140-450 10^3/uL Mean Platelet Volume 7.8 6.9-10.8 fL Neutrophils (%) (Auto) 37.0-80.0 % Lymphocytes (%) (Auto) 10.0-50.0 % Monocytes (%) (Auto) 0.0-12.0 % Basophils (%) (Auto) 0.0-2.0 % Neutrophils # (Auto) 1.6-8.6 10 ^3/uL Lymphocytes # (Auto) 0.4-5.4 10 ^3/uL Monocytes # (Auto) 0-1.3 10 ^3/uL Differential Total Cells Counted 100.0 100 Neutrophils % (Manual) 77 37.0-80.0 Band Neutrophils % (Manual) 6 Lymphocytes % (Manual) 6 L 10.0-50.0 Monocytes % (Manual) 7 0-12 Eosinophils % (Manual) 2 0-7 Basophils % (Manual) 0 0.0-2.0 Metamyelocytes % (manual) 2 Myelocytes % (Manual) 0 Promyelocytes % (Manual) 0 Blast Cells % (Manual) 0 Nucleated Red Blood Cells 1.0 % Reactive Lymphocytes 0 Platelet Estimate Adequate Anisocytosis (manual) Slight Macrocytosis Moderate Sodium Level 140 136-145 mmol/L Potassium Level 3.8 3.5-5.1 mmol/L Chloride Level 103 98-107 mmol/L Carbon Dioxide Level 27 20-31 mmol/L Anion Gap 10 5-15 Blood Urea Nitrogen 13 9-23 mg/dL Creatinine 0.90 0.700-1.30 mg/dL Glomerular Filtration Rate Calc 87 >90 mL/min BUN/Creatinine Ratio 14.4 10.0-20.0 Serum Glucose 117 H 74-106 mg/dL Calcium Level 8.4 L 8.7-10.4 mg/dL Total Bilirubin 0.6 0.2-1.0 mg/dL Aspartate Amino Transferase (AST) 20 13-40 U/L Alanine Aminotransferase (ALT) 30 7-40 U/L Alkaline Phosphatase 242 H 46-116 U/L B-Type Natriuretic Peptide 122.88 0-100 pg/mL Total Protein 5.8 5.7-8.2 g/dL Albumin 4.1 3.2-4.8 g/dL Current Medications Medications (Trade) Dose Ordered Sig/Keeley Route Start Time Stop Time Status Last Admin Albuterol (Ventolin Medneb) 5 mg ONCE ONCE NEB 08/30/24 01:15 08/30/24 01:16 DC 08/30/24 01:34 Ipratropium [place] (Atrovent Medneb) 0.5 mg ONCE ONCE NEB 08/30/24 01:15 08/30/24 01:16 DC 08/30/24 01:34 Methylprednisolone Sodium Succinate (Solu Medrol) 125 mg ONCE ONCE IV 08/30/24 01:15 08/30/24 01:16 DC 08/30/24 02:27 Ceftriaxone Sodium 50 ml @ 100 mls/hr ONCE ONCE IV 08/30/24 01:15 08/30/24 01:44 DC 08/30/24 02:28 Azithromycin 250 ml @ 125 mls/hr ONCE ONCE IV 08/30/24 01:15 08/30/24 03:14 DC 08/30/24 04:07 PROCEDURE(s): CXRP - CHEST PORTABLE REASON: sob ORDER NUMBER(s): [id number], ACCESSION NUMBER(s): [id number] EXAM: XY CHEST PORTABLE HISTORY: sob COMPARISON: XY CHEST PORTABLE on DOS: 04/24/24, CHEST PORTABLE on DOS: 04/01/19, CHEST PORTABLE on DOS: 03/31/19, CT scan of the chest dated 04/25/2024. TECHNIQUE: Portable AP view of the chest was performed. FINDINGS: There is a new right chest port-A-Cath. There are postoperative changes of median sternotomy. No pneumothorax or consolidative infiltrates. There is interstitial prominence in the lung bases, greater than that seen previously. Emphysematous changes are better characterized on prior CT scan. The heart is not enlarged. IMPRESSION: 1. Increased interstitial prominence in the lung bases suggestive of CHF exacerb ation. 2. Emphysema. 3. Postoperative changes of the heart. X-Ray, Labs, Meds, VS Comment 78-year-old male with a history of COPD, CAD, pancreatic and bladder cancer in remission, complaining of shortness of breath and productive cough Vitals remarkable for temperature 100.1, heart rate 103, hypoxia on room air at 90% Exam remarkable for mild respiratory distress, scattered rhonchi and decreased breath sounds Rhythm strip independently interpreted by me: Sinus tach, rate 103, occasional PVCs Chest x-ray IMPRESSION: 1. Increased interstitial prominence in the lung bases suggestive of CHF exacerbation. 2. Emphysema. 3. Postoperative changes of the heart. CBC remarkable for WBC 25.2, hemoglobin 9.5, hematocrit 28.7, CMP unremarkable, troponin negative x2, lactate 2, BNP 122.88 Patient treated with the following in the ED: Albuterol 5 mg/Atrovent 0.5 mg nebulized, Solu-Medrol 125 mg IV, Rocephin 1 g IV, Zithromax 500 mg IV, Tylenol 1 g p.o. On re-evaluation, shortness a breath has improved. Vitals are stable, including oxygen saturation on 3 L nasal cannula. Chest x-ray and workup findings are more consistent with pneumonia than CHF. Plan is to admit the patient for IV antibiotics and respiratory support as needed. Time of 1ST Reevaluation: 01:16 Reevaluation 1ST: Unchanged Patient Education/Counseling: Diagnosis, Treatment Family Education/Counseling: No Family Present SEPSIS Sepsis Screen Physician Orders Chest Portable (08/30/24 00:41) Urinalysis (08/30/24 00:41) Electrocardigram (08/30/24 00:41) Blood Culture (08/30/24 01:11) Rapid Influenza A&B (08/30/24 01:11) Covid19 Antigen Magda (08/30/24 ) Notify Md If Map <65 Or Bp<90 (08/30/24 03:14) If Map<65 Start Vasopressor (08/30/24 03:14) Vital Signs Date Time Temp Pulse Resp B/P (MAP) Pulse Ox O2 Delivery O2 Flow Rate FiO2 08/30/24 04:39 98 18 98/61 (73) 93 08/30/24 02:41 103 20 96/61 (73) 91 08/30/24 01:35 20 92 Nasal Cannula* 3 32 08/30/24 00:47 103 08/30/24 00:40 100.1 99 20 120/64 (82) 95 100.1 08/30/24 00:40 20 95 Nasal Cannula* 3 32 Laboratory Tests Test 08/30/24 00:45 08/30/24 01:34 White Blood Count 28.2 10^3/uL (4.4-10.8) H Lactic Acid Level 2.0 mmol/L (0.4-2.0) Medications Medications Dose Ordered Sig/Keeley Route Start Time Stop Time Status Last Admin Dose Admin Albuterol 5 mg ONCE ONCE NEB 08/30/24 01:15 08/30/24 01:16 DC 08/30/24 01:34 Azithromycin 250 ml @ 125 mls/hr ONCE ONCE IV 08/30/24 01:15 08/30/24 03:14 DC 08/30/24 04:07 Ceftriaxone Sodium 50 ml @ 100 mls/hr ONCE ONCE IV 08/30/24 01:15 08/30/24 01:44 DC 08/30/24 02:28 Ipratropium [place] 0.5 mg ONCE ONCE NEB 08/30/24 01:15 08/30/24 01:16 DC 08/30/24 01:34 Methylprednisolone Sodium Succinate 125 mg ONCE ONCE IV 08/30/24 01:15 08/30/24 01:16 DC 08/30/24 02:27 Departure 1 Departure Time of Disposition: 03:22 Impression: Primary Impression: Acute respiratory failure Additional Impressions: COPD exacerbation Pneumonia Disposition: 09 ADMITTED INPATIENT Admit to: Tele Condition: Guarded Critical Care Note Critical Care Time?: Yes (35 min-critical care time only) Critical care comment: Critical care time including multiple bedside re-evaluations, review of lab and imaging studies, and discussion of the case with the admitting provider. Patient is high risk for respiratory decompensation. Stability Stability form required: No Heart Score Heart Score: Heart Score Response (Comments) Value History N/A 0 EKG N/A 0 Age N/A 0 Risk Factors N/A 0 Troponin N/A 0 Total 0 I personally scribed for CHICO IRLEY MD ([email or web address]) on 08/30/24 at 01:19. Electronically submitted by Arsen Juárez ([facility]). CHICO RILEY MD Aug 30, 2024 01:19
[2024-08-30 01:29] LABS: Alanine Aminotransferase 30 U/L (7-40); Albumin 4.1 g/dL (3.2-4.8); Anion Gap 10 (5-15); BUN/Creatinine Ratio 14.4 (10.0-20.0); Bilirubin, Total 0.6 mg/dL (0.2-1.0); Blood Urea Nitrogen 13 mg/dL (9-23); Carbon Dioxide 27 mmol/L (20-31); Chloride 103 mmol/L (98-107); Potassium 3.8 mmol/L (3.5-5.1); Sodium 140 mmol/L (136-145); Total Protein 5.8 g/dL (5.7-8.2)
[2024-08-30 01:31] LABS: Alkaline Phosphatase 242 U/L (46-116); Calcium 8.4 mg/dL (8.7-10.4); Glucose 117 mg/dL (74-106)
[2024-08-30] MEDS: ALBUTEROL SULF 2.5 MG/0.5ML(0.5%) NEB SOLN NEB ONE (01:34)
[2024-08-30] MEDS: IPRATROPIUM BROM 0.5 MG/2.5ML INH SOL NEB ONE (01:34)
[2024-08-30 02:12] LABS: Anisocytosis Slight; Macrocytosis Moderate; Nucleated Red Blood Cells % 1.0 %; Total Cells Counted 100.0 (100)
[2024-08-30] MEDS: methylPREDNISolone SOD SUCC 125 MG/2 ML VL IV ONE (02:27)
[2024-08-30] MEDS: cefTRIAXone 1GM/50ML D5W 50 ML IV ONE (02:28)
[2024-08-30] MEDS: ACETAMINOPHEN 500 MG TAB or CAP PO ONE (04:05)
[2024-08-30] MEDS: AZITHROMYCIN 500MG/ 250ML 250 ML IV ONE (04:07)
--- NOTE | 2024-08-30 04:35 | DVH ---
EXAM: XY CHEST PORTABLE HISTORY: sob COMPARISON: XY CHEST PORTABLE on DOS: 04/24/24, CHEST PORTABLE on DOS: 04/01/19, CHEST PORTABLE on DOS: 03/31/19, CT scan of the chest dated 04/25/2024. TECHNIQUE: Portable AP view of the chest was performed. FINDINGS: There is a new right chest port-A-Cath. There are postoperative changes of median sternotomy. No pne umothorax or consolidative infiltrates. There is interstitial prominence in the lung bases, greater t meek that seen previously. Emphysematous changes are better characterized on prior CT scan. The heart is not enlarged. IMPRESSION: 1. Increased interstitial prominence in the lung bases suggestive of CHF exacerbation. 2. Emphysema. 3. Postoperative changes of the heart.
--- NOTE | 2024-08-30 06:41 | ECG ---
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
[2024-08-30] MEDS ORDERED: NITROGLYCERIN 0.4 MG SL TAB SL PRN (08:15)
[2024-08-30] MEDS ORDERED: HYDROcodone-ACET 5/325MG TAB PO PRN (08:15)
[2024-08-30] MEDS ORDERED: DEXTROSE (50%) 50ML SYRG IV PRN (08:15)
[2024-08-30] MEDS ORDERED: VANCOMYCIN PER PHARMACY 0 MG IV SCH (08:15)
[2024-08-30] MEDS ORDERED: MORPHINE SULFATE INJ 2 MG/ml SYRG IV PRN (08:15)
[2024-08-30] MEDS ORDERED: ACETAMINOPHEN 325 MG TAB PO PRN (08:15)
[2024-08-30] MEDS ORDERED: ONDANSETRON HCL 4 MG/2 ML VIAL IV PRN (08:15)
[2024-08-30] MEDS ORDERED: DOCUSATE SOD 100 MG CAP PO PRN (08:15)
[2024-08-30] MEDS ORDERED: ALBUTEROL SULF 2.5 MG/0.5ML(0.5%) NEB SOLN NEB PRN (08:15)
[2024-08-30] MEDS ORDERED: IPRATROPIUM BROM 0.5 MG/2.5ML INH SOL NEB PRN (08:15)
--- NOTE | 2024-08-30 08:26 | DVHHP2 ---
History of Present Illness Reason for Visit: COPD with acute exacerbation History of Present Illness The patient is a 78-year-old male with past medical history of COPD, bladder cancer, and Coronary artery disease who presented to [facility] ED with complaint of shortness of breaths. Patient reports he has been experiencing shortness of breaths associated with generalized weakness, productive cough, increased work of breathing for the past 3 days, getting worse today that prompted this visit. Patient was seen and evaluated in the ED, laboratory data shows WBC 28.2, hemoglobin 9.5, hematocrit 28.7, platelets 152, sodium 140, potassium 3.8, BUN 13, creatinine 0.90, glucose 117, calcium 8.4, lactic acid 2.0, troponin 9, BNP 122.88, blood pressure 98/61, heart rate 98, temperature 100.1 F trending down to 98.7 F, O2 saturation 93% on oxygen. Chest x-ray revealing increased interstitial prominence in the lung bases suggestive of CHF exacerbation, emphysema, postoperative changes of the heart. Please see medication orders section in the computer. On my assessment, patient denied chest pain, no headache, no dizziness, no diaphoresis, currently on oxygen, no nausea, no vomiting, no fever, no chills. Patient was admitted for further evaluation and medical management. Past Medical History CAD, Cancer (Bladder cancer), COPD Past Surgical History CABG, Colostomy Family History Reviewed, noncontributory to the management of this case. Past Social History The patient lives at home, denies smoking, alcohol or illicit drugs abuse. Review of Systems Constitutional: Yes: Weakness; No: Fever, Chills, Sweats, Malaise, Other Eyes: No: Pain, Vision change, Conjunctivae inflammation, Eyelid inflammation, Other, Redness ENT: No: Ear pain, Ear discharge, Nose pain, Nose discharge, Nose congestion, Mouth pain, Mouth swelling, Throat pain, Throat swelling, Other Respiratory: Cough, Shortness of breath, SOB with excertion, Other (SOB at rest); No: Dry, Wheezing, Hemoptysis, Pleuritic Pain, Sputum, Wheezing Cardiovascular: No: Chest Pain, Palpitations, Orthopnea, Paroxysmal Noc. Dyspnea, Edema, Lt Headedness, Other Gastrointestinal: No: Nausea, Vomiting, Abdominal Pain, Diarrhea, Constipation, Melena, Hematochezia, Other Genitourinary: No Dysuria, No Frequency, No Incontinence, No Hematuria, No Retention, No Other Musculoskeletal: No: other, neck pain, shoulder pain, arm pain, back pain, hand pain, leg pain, foot pain Skin: No: Rash, Lesions, Jaundice, Bruising, Other Neurological: No: Weakness, Numbness, Incoordination, Change in speech, Confusion, Seizures, Other Allergies: Coded Allergies: NO KNOWN ALLERGIES (Unverified , 03/31/19) Exam Vital Signs Vital Signs Date Time Temp Pulse Resp B/P (MAP) Pulse Ox O2 Delivery O2 Flow Rate FiO2 08/30/24 04:39 98 18 98/61 (73) 93 08/30/24 01:35 Nasal Cannula* 3 32 08/30/24 00:40 100.1 100.1 General Appearance: Alert, Oriented X3, Cooperative, No acute distress HEENT: Atraumatic, PERRLA, EOMI, Mucous membr. moist/pink Respiratory: Normal air movement Cardiovascular: Regular rate, Normal S1, Normal S2, No murmurs Abdominal: Normal bowel sounds, Soft, No tenderness, No hepatospenomegaly, No masses Extremities: No clubbing, No cyanosis, No edema, Normal pulses, No tenderness/swelling Skin: No rashes, No breakdown, No significant lesion Neuro: Normal speech, Normal tone, Sensation intact, Cranial nerves 3-12 NL, Reflexes 2+ Psych/Mental Status: Mental status NL, Mood NL Labs/Xrays Labs Test 08/30/24 01:34 08/30/24 00:45 Range/Units Lactic Acid Level 2.0 0.4-2.0 mmol/L Troponin I High Sensitivity 9 </=54 ng/L White Blood Count 28.2 H 4.4-10.8 10^3/uL Red Blood Count 2.63 L 4.5-5.90 10^6/uL Hemoglobin 9.5 L 13.5-17.5 g/dL Hematocrit 28.7 L 41.0-53.0 % Mean Corpuscular Volume 108.9 H 80.0-100.0 fL Mean Corpuscular Hemoglobin 35.9 H 28.0-32.0 pg Mean Corpuscular Hemoglobin Concent 33.0 32.0-36.0 g/dL Red Cell Distribution Width 23.4 H 11.8-14.3 % Platelet Count 152 140-450 10^3/uL Mean Platelet Volume 7.8 6.9-10.8 fL Neutrophils (%) (Auto) 37.0-80.0 % Lymphocytes (%) (Auto) 10.0-50.0 % Monocytes (%) (Auto) 0.0-12.0 % Basophils (%) (Auto) 0.0-2.0 % Neutrophils # (Auto) 1.6-8.6 10 ^3/uL Lymphocytes # (Auto) 0.4-5.4 10 ^3/uL Monocytes # (Auto) 0-1.3 10 ^3/uL Differential Total Cells Counted 100.0 100 Neutrophils % (Manual) 77 37.0-80.0 Band Neutrophils % (Manual) 6 Lymphocytes % (Manual) 6 L 10.0-50.0 Monocytes % (Manual) 7 0-12 Eosinophils % (Manual) 2 0-7 Basophils % (Manual) 0 0.0-2.0 Metamyelocytes % (manual) 2 Myelocytes % (Manual) 0 Promyelocytes % (Manual) 0 Blast Cells % (Manual) 0 Nucleated Red Blood Cells 1.0 % Reactive Lymphocytes 0 Platelet Estimate Adequate Anisocytosis (manual) Slight Macrocytosis Moderate Sodium Level 140 136-145 mmol/L Potassium Level 3.8 3.5-5.1 mmol/L Chloride Level 103 98-107 mmol/L Carbon Dioxide Level 27 20-31 mmol/L Anion Gap 10 5-15 Blood Urea Nitrogen 13 9-23 mg/dL Creatinine 0.90 0.700-1.30 mg/dL Glomerular Filtration Rate Calc 87 >90 mL/min BUN/Creatinine Ratio 14.4 10.0-20.0 Serum Glucose 117 H 74-106 mg/dL Calcium Level 8.4 L 8.7-10.4 mg/dL Total Bilirubin 0.6 0.2-1.0 mg/dL Aspartate Amino Transferase (AST) 20 13-40 U/L Alanine Aminotransferase (ALT) 30 7-40 U/L Alkaline Phosphatase 242 H 46-116 U/L B-Type Natriuretic Peptide 122.88 0-100 pg/mL Total Protein 5.8 5.7-8.2 g/dL Albumin 4.1 3.2-4.8 g/dL PATIENT: JOSEFINA AWAD ACCT: [id number] UNIT: [id number] : 1945 LOC: ER ROOM / BED: / AGE / SEX: 78 / M ADM STATUS: REG ER SERVICE [id number] ORDERING PHYSICIAN: CHICO RILEY MD PROCEDURE(s): CXRP - CHEST PORTABLE REASON: sob ORDER NUMBER(s): [id number], ACCESSION NUMBER(s): [id number] EXAM: XY CHEST PORTABLE HISTORY: sob COMPARISON: XY CHEST PORTABLE on DOS: 04/24/24, CHEST PORTABLE on DOS: 04/01/19, CHEST PORTABLE on DOS: 03/31/19, CT scan of the chest dated 04/25/2024. TECHNIQUE: Portable AP view of the chest was performed. FINDINGS: There is a new right chest port-A-Cath. There are postoperative changes of medi an sternotomy. No pneumothorax or consolidative infiltrates. There is interstitial prominence in the lung bases, greater than that seen previously. Emphysematous changes are better characterized on prior CT scan. The heart is not enlarged. IMPRESSION: 1. Increased interstitial prominence in the lung bases suggestive of CHF exacerbation. 2. Emphysema. 3. Postoperative changes of the heart. Assessment/Plan Assessment/Plan Acute respiratory failure COPD with acute exacerbation Generalized weakness Sepsis, unspecified organism Plan 1. Admit to telemetry unit 2. Breathing treatment 3. Pain control management 4. IV antibiotic management 5. Management of fluids and electrolytes 6. Consultation for hospitalized 7. Diagnostic test chest x-ray 8. DVT prophylaxis-on SCDs 9. Repeat labs CBC, CMP in a.m. 10. Home medication reviewed and reconciled 11. Continue with current medical management 12. Treatment plan discussed with patient and RN. Patient verbalized understanding. Plan discussed with: Patient, Other (RN) My Orders Orders - AINSLEY GRIDER DNP Procedure Category Date Status Time Consistent DIET 08/30/24 Transmitted Carb(Ccho)Diabetes Breakfast Ceftriaxone Ivpb PHA 08/30/24 Transmitted Rocephin 09:00 Albuterol Medneb PHA 08/30/24 Transmitted (Ventolin Medneb) 08:15 Ipratropium Medneb PHA 08/30/24 Transmitted (Atrovent Medneb) 08:15 Methylprednisolone PHA 08/30/24 Transmitted Sod Succ (Solu Medrol 14:00 Famotidine Injection PHA 08/30/24 Transmitted (Pepcid Injection) 10:00 Type And Screen BBK 08/30/24 Transmitted 08:15 Aspirin Tablet PHA 08/30/24 Transmitted 10:00 Calcium Ivpb PHA 08/30/24 Transmitted 08:15 Vancomycin Per PHA 08/30/24 Transmitted Pharmacy 08:15 Glucose Blood PHA 08/30/24 Transmitted (Accu-Chek Comfort 11:30 Mild Sliding Scale PHA 08/30/24 Transmitted 11:30 Dextrose 50% Syringe PHA 08/30/24 Transmitted 08:15 Admit ADMIT 08/30/24 Transmitted 08:15 Allergies [facility] 08/30/24 Transmitted 08:15 Code Status CODE 08/30/24 Transmitted 08:15 Sodium Chloride Lock PHA 08/30/24 Transmitted (Saline Lock Ns) 14:00 Oxygen Per Hour RT 08/30/24 Transmitted 08:15 Hydrocodone-Acet PHA 08/30/24 Transmitted 5/325mg Tab (Ovid 08:15 Ondansetron Hcl PHA 08/30/24 Transmitted (Zofran) 08:15 Docusate Sodium [facility] 08/30/24 Transmitted Capsule (Colace 08:15 Complete Blood Count LAB 08/31/24 Verified 04:00 Comprehensive LAB 08/31/24 Verified Metabolic Panel 04:00 Condition: Serious [facility] 08/30/24 Transmitted 08:15 Acetaminophen Tablet [facility] 08/30/24 Transmitted (Tylenol Tablet) 08:15 Bedrest With Bathroom [facility] 08/30/24 Transmitted Privileg 08:15 Sequential [facility] 08/30/24 Transmitted Compression Device Nitroglycerin [facility] 08/30/24 Transmitted Sublingual (Ntrostat 08:15 Morphine Sulfate PHA 08/30/24 Transmitted Injection 08:15 Stat Ekg For Chest [facility] 08/30/24 Transmitted Pain 08:15 Notify Md Of Changes [facility] 08/30/24 Transmitted From Base 08:15 Glass Worker For [facility] 08/30/24 Transmitted 24 Hours 08:15 Emergency Dysrhythmia [facility] 08/30/24 Transmitted Protocol 08:15 Rhythm Strips Once [facility] 08/30/24 Transmitted Every Shift 08:15 Oxygen By Nasal RT 08/30/24 Transmitted Cannula 08:15 Problem List: (1) Acute respiratory failure (2) COPD with acute exacerbation (3) Generalized weakness (4) Sepsis, unspecified organism Date of Service: Aug 30, 2024 Billing Provider: AINSLEY GRIDER DNP Common Visit Codes: [id number] INP/OBS CARE (HIGH) AINSLEY GRIDER DNP Aug 30, 2024 08:26
[2024-08-30 08:45] VITALS: PULSE 96; RESP 22; O2SAT 96
[2024-08-30 09:49] VITALS: BP 97/69; PULSE 96; RESP 16; TEMP 98.3; O2SAT 92
[2024-08-30] MEDS: cefTRIAXone 1GM/50ML D5W 50 ML IV SCH (10:03)
[2024-08-30] MEDS: FAMOTIDINE (10MG/ML) 2ML VL IV SCH (10:09)
[2024-08-30] MEDS: CALCIUM GLUC 1,000mg/50ml-NS 50 ML IV ONE (10:54)
[2024-08-30 11:01] LABS: COVID19 ANTIGEN SOFIA FIA NEGATIVE (NEGATIVE)
[2024-08-30] MEDS: InsuLIN REG 1unit/0.01ml Soln (100units/ml) SC SCH (11:20)
[2024-08-30] MEDS: ACCU-CHEK COMFORT CURVE STRIP VI SCH (11:58)
[2024-08-30 12:20] LABS: Urine Amorphous Crystal FEW /hpf (None Seen); Urine Protein, UAD 1+ (Negative)
[2024-08-30] MEDS: VANCOMYCIN 1GM/250ML KIT 250 ML IV ONE (12:23)
[2024-08-30] MEDS: methylPREDNISolone SOD SUCC 40 MG/ML VL IV SCH (14:00)
[2024-08-30] MEDS: SODIUM CHLOR 0.9% PF (SALINE LOCK) 10ML VIAL/SYR IV SCH (14:00)
[2024-08-30 17:15] VITALS: BP_SYST 105; BP_SYST 108; BP_DIAS 82; PULSE 99; RESP 20; TEMP 98.2; O2SAT 88
[2024-08-30 19:51] VITALS: O2SAT 92
[2024-08-30 20:00] VITALS: PULSE 103; PULSE 82; RESP 17; O2SAT 93
[2024-08-30 21:00] VITALS: BP 114/76; PULSE 82; RESP 17; TEMP 98.2; O2SAT 93
[2024-08-31] VITALS (9 sets, daily range): BP systolic 100–126; BP diastolic 68–84; PULSE 55–85; RESP 17–22; TEMP 97.8–98.5; O2SAT 88–96
[2024-08-31 05:37] LABS: Hemoglobin 8.3 g/dL (13.5-17.5)
[2024-08-31 05:44] LABS: Hematocrit 26.7 % (41.0-53.0); Mean Corpuscular Hemoglobin 35.1 pg (28.0-32.0); Mean Corpuscular Volume 112.8 fL (80.0-100.0)
[2024-08-31 05:55] LABS: Alanine Aminotransferase 23 U/L (7-40); Albumin 3.5 g/dL (3.2-4.8); BUN/Creatinine Ratio 16.1 (10.0-20.0); Bilirubin, Total 0.3 mg/dL (0.2-1.0); Blood Urea Nitrogen 15 mg/dL (9-23); Calcium 8.9 mg/dL (8.7-10.4); Carbon Dioxide 24 mmol/L (20-31)
[2024-08-31 05:57] LABS: Alkaline Phosphatase 193 U/L (46-116); Glucose 118 mg/dL (74-106); Total Protein 4.7 g/dL (5.7-8.2)
[2024-08-31 05:59] LABS: Anion Gap 11 (5-15); Chloride 106 mmol/L (98-107); Potassium 4.6 mmol/L (3.5-5.1); Sodium 141 mmol/L (136-145)
[2024-08-31 08:12] LABS: Anisocytosis Slight; Macrocytosis Moderate; Total Cells Counted 100.0 (100)
--- NOTE | 2024-08-31 12:16 | DVH ---
CT CT AB PEL WO CON-NO ORAL OR IV INDICATION: history of pancreatic/bladder cancer EXAM DATE: 08/31/2024 11:20 AM COMPARISON: None RADIATION DOSE: CTDIvol: 6.56 mGy, DLP: 327.46 mGy*cm PROCEDURE: Helical CT images were obtained of the abdomen and pelvis without IV contrast Sagittal and coronal reconstructions are provided. ORAL CONTRAST: None. ADDITIONAL IMAGES / REFORMATS: None All C T scans at this medical facility are performed using dose modulation techniques as appropriate to a p erformed exam including the following: Automated exposure control was utilized; adjustment of the MA and/or KV according to patient size; and use of iterative reconstruction technique. FINDINGS: LUNG BASE: There is moderate emphysematous changes of the lungs. LIVER: Normal. GALLBLADDER AND BILIARY TREE: A large calcified gallstone is visualized. No intra- or extrahepatic bi liary ductal dilation. PANCREAS: Atrophic pancreas is not well visualized. SPLEEN: Normal. BOWEL: There is a right lower quadrant ostomy. No small bowel dilatation is seen. The appendix appear s within normal limits. Moderate colonic diverticulosis is visualized. Postsurgical changes from christine l anastomotic sutures is seen. ADRENALS: Normal. KIDNEYS AND URETER: There is multiple bilateral kidneys cystic lesions of varying density some of whi ch could be hemorrhagic cysts with punctate peripheral calcifications. The largest cyst measures 3.4c m on the left. BLADDER: Absent bladder. REPRODUCTIVE ORGANS: Normal. LYMPH NODES:No lymphadenopathy. PERITONEUM: No ascites or free air. No other fluid collection. VESSELS: Scattered atherosclerotic calcifications are noted. There is a multi lobulated aortic aneury sm measuring up to 5.1 cm. There is ectasia of the bilateral common iliac arteries. RETROPERITONEUM: Normal. ABDOMINAL WALL: There is a bowel containing left inguinal hernia. BONES: Scattered osseous degenerative changes are noted. IMPRESSION: No acute intraabdominal abnormality. Right lower quadrant ostomy. No small bowel dilatation. Moderate colonic diverticulosis. Postsurgical changes from bowel anastomotic sutures. Multi lobulated aortic aneurysm measuring up to 5.1 cm with ectasia of the bilateral common iliac art eries. Cholelithiasis.
--- NOTE | 2024-08-31 14:36 | DVHPN2 ---
Reviewed: Care Plan, H&P, Labs, Medications, Previous Orders, Radiology Changes from previous H/P or p: No Changes General: Per HPI Eyes: No Pain, No Vision change, No Conjunctivae inflammation, No Eyelid inflammation, No Other, No Redness ENT: No Ear pain, No Ear discharge, No Nose pain, No Nose discharge, No Nose congestion, No Mouth pain, No Mouth swelling, No Throat pain, No Throat swelling, No Other Cardiovascular: No Chest Pain, No Palpitations, No Orthopnea, No Paroxysmal Noc. Dyspnea, No Edema, No Lt Headedness, No Other Respiratory: Cough; No Dry; Shortness of breath, SOB with excertion; No Wheezing, No Hemoptysis, No Pleuritic Pain, No Sputum; Other (SOB at rest) Gastrointestinal: No Nausea, No Vomiting, No Abdominal Pain, No Diarrhea, No Constipation, No Melena, No Hematochezia, No Other Genitourinary: No Dysuria, No Frequency, No Incontinence, No Hematuria, No Retention, No Other Musculoskeletal: No other, No neck pain, No shoulder pain, No arm pain, No back pain, No hand pain, No leg pain, No foot pain Skin: No Rash, No Lesions, No Jaundice, No Bruising, No Other Objective Vitals Vital Signs Date Time Temp Pulse Resp B/P (MAP) Pulse Ox O2 Delivery O2 Flow Rate FiO2 08/31/24 12:53 97.9 80 22 126/84 (98) 92 97.9 08/31/24 10:00 Nasal Cannula* 3 32 Intake/Output Intake and Output 08/31/24 07:00 Intake Total 800 ml Balance 800 ml Intake Oral 450 ml IV Total 350 ml General Appearance: Alert, Oriented X3, Cooperative Cardiovascular: Regular rate, Normal S1 Extremities: No clubbing, No cyanosis Neuro: Normal gait, Normal speech Medications Current Medications Medications Dose Ordered Sig/Keeley Route Start Time Stop Time Status Last Admin Dose Admin Ceftriaxone Sodium 50 ml @ 100 mls/hr DAILY@09 IV 08/30/24 09:00 08/31/24 08:38 100 MLS/HR Albuterol 2.5 mg Q4HPRN PRN NEB 08/30/24 08:15 Ipratropium [place] 0.5 mg Q4HPRN PRN NEB 08/30/24 08:15 Methylprednisolone Sodium Succinate 40 mg Q8HR IV 08/30/24 14:00 08/31/24 14:27 40 MG Famotidine 20 mg Q12HR IV 08/30/24 10:00 08/31/24 08:38 20 MG Aspirin 81 mg DAILY PO 08/30/24 10:00 08/31/24 08:38 81 MG Vancomycin HCl 0 ml @ 0 mls/hr UD IV 08/30/24 08:15 Diagnostic Test (Pha) 1 strip ACHS 08/30/24 11:30 08/31/24 11:39 1 STRIP Insulin Human Regular ACHS SC 08/30/24 11:30 08/30/24 21:17 2 UNITS Dextrose 50 ml UD PRN IV 08/30/24 08:15 Sodium Chloride 10 ml Q8HR IV 08/30/24 14:00 08/31/24 14:18 10 ML Acetaminophen/ Hydrocodone Bitart 1 tab Q4HP PRN PO 08/30/24 08:15 Ondansetron HCl 4 mg Q4HP PRN IV 08/30/24 08:15 Docusate Sodium 100 mg BIDPRN PRN PO 08/30/24 08:15 Acetaminophen 650 mg Q6HP PRN PO 08/30/24 08:15 Nitroglycerin 0.4 mg Q5MINP PRN SL 08/30/24 08:15 Morphine Sulfate 2 mg Q30M PRN IV 08/30/24 08:15 Clonidine HCl 0.1 mg Q4HP PRN PO 08/30/24 08:30 Laboratory Results Laboratory Tests 08/31/24 05:09 Chemistry Test 08/31/24 05:09 Albumin 3.5 g/dL (3.2-4.8) Calcium Level 8.9 mg/dL (8.7-10.4) Total Protein 4.7 g/dL (5.7-8.2) L LFT Test 08/31/24 05:09 Alanine Aminotransferase (ALT) 23 U/L (7-40) Alkaline Phosphatase 193 U/L (46-116) H Aspartate Amino Transferase (AST) 17 U/L (13-40) Total Bilirubin 0.3 mg/dL (0.2-1.0) Urinalysis Test 08/30/24 05:43 Urine Color Brown (Yellow) H Urine Clarity Ex.turbid (Clear) Urine pH 8.0 (5.0-9.0) Urine Specific [place] 1.015 (1.001-1.035) Urine Protein 1+ (Negative) H Urine Ketones Negative (Negative) Urine Blood Negative /uL (Negative) Urine Nitrite 2+ (Negative) H Urine Bilirubin Negative (Negative) Urine Urobilinogen Normal mg/dL (Negative) Urine Leukocyte Esterase Negative /uL (Negative) Urine RBC 3 /hpf (0 - 3) Urine Microscopic WBC 86 /HPF (0-3) H Urine Squamous Epithelial Cells None seen /hpf (<5) Urine Amorphous Crystals Few /hpf (None Seen) Urine Bacteria None seen /hpf (None Seen) Urine Glucose Normal mg/dL (Normal) Microbiology Microbiology Date/Time Source Procedure Growth Status 08/30/24 01:34 Blood Blood Culture - Preliminary NO GROWTH AFTER 24 HOURS OF INCUBATION. Resulted Labs and/or images reviewed: Labs reviewed by me, Image(s) reviewed by me Assessment/Plan Assessment/Plan The patient is a 78-year-old male with past medical history of COPD, bladder cancer, and Coronary artery disease who presented to [facility] ED with complaint of shortness of breaths. Patient reports he has been experiencing shortness of breaths associated with generalized weakness, productive cough, increased work of breathing for the past 3 days, getting worse today that prompted this visit. Patient was seen and evaluated in the ED, laboratory data shows WBC 28.2, hemoglobin 9.5, hematocrit 28.7, platelets 152, sodium 140, potassium 3.8, BUN 13, creatinine 0.90, glucose 117, calcium 8.4, lactic acid 2.0, troponin 9, BNP 122.88, blood pressure 98/61, heart rate 98, temperature 100.1 F trending down to 98.7 F, O2 saturation 93% on oxygen. Chest x-ray revealing increased interstitial prominence in the lung bases suggestive of CHF exacerbation, emphysema, postoperative changes of the heart. Please see medication orders section in the computer. On my assessment, patient denied chest pain, no headache, no dizziness, no diaphoresis, currently on oxygen, no nausea, no vomiting, no fever, no chills. Patient was admitted for further evaluation and medical management. Acute respiratory failure COPD with acute exacerbation Generalized weakness Sepsis, unspecified organism PNA suspected 08/31/2024: Weaning down on O2 as tolerated. Patient does not use O2 at home. Patient was reported to T sat below 90% if patient is on room air. Discussed with at the bedside regarding management. states that patient wants to be discharged by Sunday to follow up with an appointment with the oncologist for recently diagnosed bladder cancer (patient has completed chemotherapy and now needs to be re-evaluate for possible radiation therapy) Plan discussed with: Patient, Spouse My Orders Orders - GABY SERVIN DO Procedure Category Date Status Time Ct Ab Pel Wo Con-No CT 08/31/24 Resulted Oral Or Iv 11:03 Date of Service: Aug 31, 2024 Billing Provider: GABY SERVIN DO Common Visit Codes: [id number] INP/OBS CARE(HIGH) GABY SERVIN DO Aug 31, 2024 14:36
[2024-08-31] MEDS: VANCOMYCIN 750mg/150ml 150 ML IV ONE (16:14)
[2024-09-01] VITALS (9 sets, daily range): BP systolic 113–141; BP diastolic 73–90; PULSE 64–91; RESP 16–20; TEMP 97.1–99; O2SAT 91–95
[2024-09-01 10:08] LABS: Hemoglobin 9.2 g/dL (13.5-17.5)
[2024-09-01 10:14] LABS: Hematocrit 28.7 % (41.0-53.0); Mean Corpuscular Hemoglobin 35.8 pg (28.0-32.0); Mean Corpuscular Volume 111.1 fL (80.0-100.0)
[2024-09-01 10:28] LABS: Alanine Aminotransferase 21 U/L (7-40); Albumin 3.6 g/dL (3.2-4.8); Anion Gap 9 (5-15); BUN/Creatinine Ratio 15.0 (10.0-20.0); Bilirubin, Total 0.3 mg/dL (0.2-1.0); Blood Urea Nitrogen 15 mg/dL (9-23); Calcium 9.1 mg/dL (8.7-10.4); Carbon Dioxide 28 mmol/L (20-31); Chloride 105 mmol/L (98-107); Potassium 4.5 mmol/L (3.5-5.1); Sodium 142 mmol/L (136-145)
[2024-09-01 10:33] LABS: Alkaline Phosphatase 196 U/L (46-116); Glucose 147 mg/dL (74-106); Total Protein 5.1 g/dL (5.7-8.2)
[2024-09-01 12:19] LABS: Total Cells Counted 100.0 (100)
[2024-09-01 12:20] LABS: Anisocytosis Slight; Macrocytosis Marked
--- NOTE | 2024-09-01 12:41 | DVHPN2 ---
Reviewed: Care Plan, H&P, Labs, Medications, Previous Orders, Radiology Changes from previous H/P or p: No Changes General: Per HPI Eyes: No Pain, No Vision change, No Conjunctivae inflammation, No Eyelid inflammation, No Other, No Redness ENT: No Ear pain, No Ear discharge, No Nose pain, No Nose discharge, No Nose congestion, No Mouth pain, No Mouth swelling, No Throat pain, No Throat swelling, No Other Cardiovascular: No Chest Pain, No Palpitations, No Orthopnea, No Paroxysmal Noc. Dyspnea, No Edema, No Lt Headedness, No Other Respiratory: Cough; No Dry; Shortness of breath, SOB with excertion; No Wheezing, No Hemoptysis, No Pleuritic Pain, No Sputum; Other (SOB at rest) Gastrointestinal: No Nausea, No Vomiting, No Abdominal Pain, No Diarrhea, No Constipation, No Melena, No Hematochezia, No Other Genitourinary: No Dysuria, No Frequency, No Incontinence, No Hematuria, No Retention, No Other Musculoskeletal: No other, No neck pain, No shoulder pain, No arm pain, No back pain, No hand pain, No leg pain, No foot pain Skin: No Rash, No Lesions, No Jaundice, No Bruising, No Other Objective Vitals Vital Signs Date Time Temp Pulse Resp B/P (MAP) Pulse Ox O2 Delivery O2 Flow Rate FiO2 09/01/24 10:00 92 Nasal Cannula 2.0 09/01/24 10:00 28 09/01/24 09:00 99.0 73 16 113/73 (86) 99.0 Intake/Output Intake and Output 09/01/24 07:00 Intake Total 2400 ml Output Total 253 ml Balance 2147 ml Intake Oral 2200 ml IV Total 200 ml Output Urine Total 253 ml # Bowel Movements 1 General Appearance: Alert, Oriented X3, Cooperative Cardiovascular: Regular rate, Normal S1 Extremities: No clubbing, No cyanosis Neuro: Normal gait, Normal speech Medications Current Medications Medications Dose Ordered Sig/Keeley Route Start Time Stop Time Status Last Admin Dose Admin Ceftriaxone Sodium 50 ml @ 100 mls/hr DAILY@09 IV 08/30/24 09:00 09/01/24 09:21 100 MLS/HR Albuterol 2.5 mg Q4HPRN PRN NEB 08/30/24 08:15 Ipratropium [place] 0.5 mg Q4HPRN PRN NEB 08/30/24 08:15 Methylprednisolone Sodium Succinate 40 mg Q8HR IV 08/30/24 14:00 09/01/24 05:35 40 MG Famotidine 20 mg Q12HR IV 08/30/24 10:00 09/01/24 09:21 20 MG Aspirin 81 mg DAILY PO 08/30/24 10:00 09/01/24 09:21 81 MG Vancomycin HCl 0 ml @ 0 mls/hr UD IV 08/30/24 08:15 Diagnostic Test (Pha) 1 strip ACHS 08/30/24 11:30 09/01/24 11:30 1 STRIP Insulin Human Regular ACHS SC 08/30/24 11:30 08/31/24 22:00 3 UNITS Dextrose 50 ml UD PRN IV 08/30/24 08:15 Sodium Chloride 10 ml Q8HR IV 08/30/24 14:00 09/01/24 05:35 10 ML Acetaminophen/ Hydrocodone Bitart 1 tab Q4HP PRN PO 08/30/24 08:15 Ondansetron HCl 4 mg Q4HP PRN IV 08/30/24 08:15 Docusate Sodium 100 mg BIDPRN PRN PO 08/30/24 08:15 Acetaminophen 650 mg Q6HP PRN PO 08/30/24 08:15 Nitroglycerin 0.4 mg Q5MINP PRN SL 08/30/24 08:15 Morphine Sulfate 2 mg Q30M PRN IV 08/30/24 08:15 Clonidine HCl 0.1 mg Q4HP PRN PO 08/30/24 08:30 Vancomycin HCl 200 ml @ 200 mls/hr Q12H IV 09/01/24 16:00 UNV Vancomycin HCl 200 ml @ 200 mls/hr Q12H IV 09/01/24 16:00 UNV Laboratory Results Laboratory Tests 09/01/24 09:51 Chemistry Test 09/01/24 09:51 Albumin 3.6 g/dL (3.2-4.8) Calcium Level 9.1 mg/dL (8.7-10.4) Total Protein 5.1 g/dL (5.7-8.2) L LFT Test 09/01/24 09:51 Alanine Aminotransferase (ALT) 21 U/L (7-40) Alkaline Phosphatase 196 U/L (46-116) H Aspartate Amino Transferase (AST) 16 U/L (13-40) Total Bilirubin 0.3 mg/dL (0.2-1.0) Urinalysis Test 08/30/24 05:43 Urine Color Brown (Yellow) H Urine Clarity Ex.turbid (Clear) Urine pH 8.0 (5.0-9.0) Urine Specific [place] 1.015 (1.001-1.035) Urine Protein 1+ (Negative) H Urine Ketones Negative (Negative) Urine Blood Negative /uL (Negative) Urine Nitrite 2+ (Negative) H Urine Bilirubin Negative (Negative) Urine Urobilinogen Normal mg/dL (Negative) Urine Leukocyte Esterase Negative /uL (Negative) Urine RBC 3 /hpf (0 - 3) Urine Microscopic WBC 86 /HPF (0-3) H Urine Squamous Epithelial Cells None seen /hpf (<5) Urine Amorphous Crystals Few /hpf (None Seen) Urine Bacteria None seen /hpf (None Seen) Urine Glucose Normal mg/dL (Normal) Microbiology Microbiology Date/Time Source Procedure Growth Status 08/30/24 01:34 Blood Blood Culture - Preliminary NO GROWTH AFTER 48 HOURS OF INCUBATION. Resulted Labs and/or images reviewed: Labs reviewed by me, Image(s) reviewed by me Assessment/Plan Assessment/Plan Sepsis with the elevated white count 50 k possibly secondary to underlying pancreatic cancer Acute respiratory failure COPD with acute exacerbation Generalized weakness History of bladder cancer status post cystectomy History of pancreatic cancer being treated the [facility] Acute COPD exacerbation Coronary artery disease status post CABG History of colostomy Sepsis secondary to pneumonia Community-acquired Pneumonia/Gram-negative: Rocephin vancomycin albuterol Atrovent Solu-Medrol UTI: Blood cultures negative, urine cultures pending, continue Rocephin Heather at the bedside Patient is Thinking of leaving AMA Explained the consequences and complications including possible Time spent 70 minutes Patient is full code Advanced care planning time 20 minutes Plan discussed with: Patient Date of Service: Sep 01, 2024 Billing Provider: TITO MCKEON MD Common Visit Codes: [id number] CARE 30-74 MIN TITO MCKEON MD Sep 01, 2024 12:41
[2024-09-01] MEDS ORDERED: VANCOMYCIN 1GM/200ML PM 200 ML IV SCH ×2 (16:00)
[2024-09-01] MEDS: LORazepam 2MG/ML-1ML VIAL IV PRN (19:42)
[2024-09-02 05:00] VITALS: BP 105/72; PULSE 82; RESP 18; TEMP 97.2; O2SAT 92
[2024-09-02 07:00] VITALS: O2SAT 92
[2024-09-02 08:00] VITALS: O2SAT 90
[2024-09-02 08:26] VITALS: BP 105/72; PULSE 71; RESP 18; O2SAT 92
[2024-09-02 09:00] VITALS: BP 131/81; PULSE 67; RESP 15; TEMP 97.9; O2SAT 96
[2024-09-02 13:00] VITALS: BP 150/93; PULSE 94; RESP 19; TEMP 97.9; O2SAT 90
--- NOTE | 2024-09-02 13:04 | DVHDS2 ---
Discharge Summary Date of Admission Aug 30, 2024 at 08:15 Date of Discharge: Sep 02, 2024 Admitting Diagnosis Shortness of breath Wounds: None Labs/Diagnostic Data: Laboratory Results Test 09/02/24 05:19 09/01/24 13:20 09/01/24 09:51 08/30/24 09:42 POC Glucose 154 mg/dl (70-106) Random Vancomycin Level 7.4 ug/mL (5-10) White Blood Count 50.1 10^3/uL (4.4-10.8) Red Blood Count 2.58 10^6/uL (4.5-5.90) Hemoglobin 9.2 g/dL (13.5-17.5) Hematocrit 28.7 % (41.0-53.0) Mean Corpuscular Volume 111.1 fL (80.0-100.0) Mean Corpuscular Hemoglobin 35.8 pg (28.0-32.0) Mean Corpuscular Hemoglobin Concent 32.2 g/dL (32.0-36.0) Red Cell Distribution Width 22.7 % (11.8-14.3) Platelet Count 287 10^3/uL (140-450) Mean Platelet Volume 7.1 fL (6.9-10.8) Neutrophils (%) (Auto) % (37.0-80.0) Lymphocytes (%) (Auto) % (10.0-50.0) Monocytes (%) (Auto) % (0.0-12.0) Basophils (%) (Auto) % (0.0-2.0) Neutrophils # (Auto) 10 ^3/uL (1.6-8.6) Lymphocytes # (Auto) 10 ^3/uL (0.4-5.4) Monocytes # (Auto) 10 ^3/uL (0-1.3) Differential Total Cells Counted 100.0 (100) Neutrophils % (Manual) 79 (37.0-80.0) Band Neutrophils % (Manual) 3 Lymphocytes % (Manual) 7 (10.0-50.0) Monocytes % (Manual) 5 (0-12) Eosinophils % (Manual) 0 (0-7) Basophils % (Manual) 0 (0.0-2.0) Metamyelocytes % (manual) 3 Myelocytes % (Manual) 3 Promyelocytes % (Manual) 0 Blast Cells % (Manual) 0 Reactive Lymphocytes 0 Platelet Estimate Adequate Poikilocytosis (manual) Slight Anisocytosis (manual) Slight Macrocytosis Marked [place] Cells Moderate Schistocytes Few Sodium Level 142 mmol/L (136-145) Potassium Level 4.5 mmol/L (3.5-5.1) Chloride Level 105 mmol/L (98-107) Carbon Dioxide Level 28 mmol/L (20-31) Anion Gap 9 (5-15) Blood Urea Nitrogen 15 mg/dL (9-23) Creatinine 1.00 mg/dL (0.700-1.30) Glomerular Filtration Rate Calc 77 mL/min (>90) BUN/Creatinine Ratio 15.0 (10.0-20.0) Serum Glucose 147 mg/dL (74-106) Calcium Level 9.1 mg/dL (8.7-10.4) Total Bilirubin 0.3 mg/dL (0.2-1.0) Aspartate Amino Transferase (AST) 16 U/L (13-40) Alanine Aminotransferase (ALT) 21 U/L (7-40) Alkaline Phosphatase 196 U/L (46-116) Total Protein 5.1 g/dL (5.7-8.2) Albumin 3.6 g/dL (3.2-4.8) Influenza Type A Antigen Negative (Negative) Influenza Type B Antigen Negative (Negative) SARS-CoV-2 Antigen (Rapid) Negative (NEGATIVE) Test 08/30/24 05:43 08/30/24 01:34 08/30/24 00:45 Urine Color Brown (Yellow) Urine Clarity Ex.turbid (Clear) Urine pH 8.0 (5.0-9.0) Urine Specific [place] 1.015 (1.001-1.035) Urine Protein 1+ (Negative) Urine Ketones Negative (Negative) Urine Blood Negative /uL (Negative) Urine Nitrite 2+ (Negative) Urine Bilirubin Negative (Negative) Urine Urobilinogen Normal mg/dL (Negative) Urine Leukocyte Esterase Negative /uL (Negative) Urine RBC 3 /hpf (0 - 3) Urine Microscopic WBC 86 /HPF (0-3) Urine Squamous Epithelial Cells None seen /hpf (<5) Urine Amorphous Crystals Few /hpf (None Seen) Urine Bacteria None seen /hpf (None Seen) Urine Glucose Normal mg/dL (Normal) Lactic Acid Level 2.0 mmol/L (0.4-2.0) Troponin I High Sensitivity 9 ng/L (</=54) Nucleated Red Blood Cells 1.0 % B-Type Natriuretic Peptide 122.88 pg/mL (0-100) Other Laboratory Tests 09/01/24 09:51 Brief Hx & Hospital Course: 78-year-old male with a history of bladder cancer status post cystectomy history of pancreatic cancer being treated at the [facility] COPD coronary artery disease status post CABG history of colostomy COPD on home oxygen came in for shortness of breaths found to have very [place] [id number] possibly secondary to underlying pancreatic cancer. Found to have community-acquired pneumonia Gram-positive versus Gram-negative treated with Rocephin azithromycin albuterol Atrovent and Solu-Medrol blood cultures negative urine cultures pending. Mi the patient is being stabilized with the patient decided to leave AMA and left AMA on the morning of 09/02/2024 . Consequences complications including possible explained to the patient. His at the bedside Consults/Reason for consult None Operations or Procedures None Condition at Discharge: Fair Final Diagnosis/Problems List Sepsis with the elevated white count 50 k possibly secondary to underlying pancreatic cancer Acute respiratory failure COPD with acute exacerbation Generalized weakness History of bladder cancer status post cystectomy History of pancreatic cancer being treated the [facility] Acute COPD exacerbation Coronary artery disease status post CABG History of colostomy Sepsis secondary to pneumonia Community-acquired Pneumonia/Gram-negative: Rocephin vancomycin albuterol Atrovent Solu-Medrol UTI: Blood cultures negative, urine cultures pending, continue Rocephin Discharge Instruct/Medications Scheduled Aspirin (Aspirin), 81 MG PO DAILY, (Reported) Atorvastatin Calcium (Atorvastatin Calcium), 1 TAB PO QPM, (Reported) Azithromycin (Azithromycin), 250 MG PO DAILY Metformin Hydrochloride (Metformin Hcl), 500 MG PO IBID, (Reported) Metoprolol Tartrate (Metoprolol Tartrate), 25 MG PO BID, (Reported) Prednisone (Prednisone), 20 MG PO DAILY Scheduled PRN Acetaminophen (Acetaminophen), 650 MG PO Q6HP PRN 46 (Time taken for discharge summary 46 minutes) Discharge Statement: "Patient was advised to return to the ER or call 911 if any headaches, dizziness, shortness of breath, chest pain, abdominal pain, bleeding, fevers, or worsening of medical condition. Patient was counseled about treatment plan, medications, possible side effects, patientverbalized understanding. All questions were answered to the best of my ability. This discharge took greater then 30 minutes in planning, reviewing documentation, counseling the patient, and discussing with other team members." ASSESSMENT ASSESSMENT Hospital Course Left AMA Assessment Date of Service: Sep 02, 2024 Billing Provider: TITO MCKEON MD Common Visit Codes: [id number] DISCH DAY >30min TITO MCKEON MD Sep 02, 2024 13:04
== END 2024-09-02 08:10 | disposition left against medical advice (07) | DRG 871 ==
LOC: ER 00:35 → OVERFLOW 08:15 → TELE-WESTW 16:59
PROVIDERS: ADMIT Family Medicine; ATTEND Family Medicine
DX: A41.59 Other Gram-negative sepsis (principal); J15.69 Pneumonia due to other Gram-negative bacteria; J96.00 Acute respiratory failure, unspecified whether with hypoxia or hypercapnia; J44.1 Chronic obstructive pulmonary disease with (acute) exacerbation; N39.0 Urinary tract infection, site not specified; J44.0 Chronic obstructive pulmonary disease with (acute) lower respiratory infection; Z53.29 Procedure and treatment not carried out because of patient's decision for other reasons; I25.10 Atherosclerotic heart disease of native coronary artery without angina pectoris; Z85.07 Personal history of malignant neoplasm of pancreas; Z95.1 Presence of aortocoronary bypass graft; Z93.3 Colostomy status; Z85.51 Personal history of malignant neoplasm of bladder; Z99.81 Dependence on supplemental oxygen; Z90.6 Acquired absence of other parts of urinary tract
CPT/HCPCS: 36415; 71045; 74176; 80053; 80202; 81001; 82962; 83605; 83880; 84484; 85007; 85027; 86850; 86900; 86901; 87040; 87086; 87426; 87804; 93005; 94640; 96365; 96367; 96375; 99291; G0378; J1815; J3490